=== PATIENT | female | born 1975 | race Caucasian/White ===

== ENCOUNTER → 2020-09-11 18:37 | Outpatient (CLI) | payer MEDICAID, SELFPAY ==
[2020-09-11 19:18] LABS: Basophils # 0.4 K/mm3 (0-0.2); Basophils % 2.7 % (0.1-2.0); Eosinophils # 0.3 K/mm3 (0.0-0.4); Eosinophils % 1.7 % (0.1-12.0); Hematocrit 42.8 % (37.0-47.0); Hemoglobin 14.4 g/dL (12.2-16.2); Lymphocytes # 4.3 K/mm3 (0.7-4.5); Lymphocytes % 26.9 % (10-50); Mean Corpuscular HGB Conc 33.6 g/dL (31.8-35.4); Mean Corpuscular Hemoglobin 30.7 pg (27.0-31.2); Mean Corpuscular Volume 91.4 fl (81-99); Mean Platelet Volume 12.2 fl (7.4-10.4); Monocytes # 0.6 K/mm3 (0.1-1.0); Monocytes % 3.8 % (1.7-9.3); Neutrophils # 10.4 K/mm3 (1.8-7.8); Neutrophils % 64.9 % (37.0-80.0); Platelet Count 421 K/mm3 (142-424); Red Blood Count 4.68 M/mm3 (4.20-5.40); Red Cell Distribution Width 15.3 % (11.5-17.5)
[2020-09-11 19:25] LABS: MANUAL DIFFERENTIAL MANUAL DIFFERENTIAL (MANUAL DIFF)
[2020-09-11 19:27] LABS: Hemoglobin A1C 10.8 % (4.0-6.0)
[2020-09-11 20:26] LABS: Eosinophils % 1 % (0-3); Lymphocytes % 25 % (10-50); Monocytes % 1 % (2-9); Neutrophils % 73 % (42-76); Platelet Estimate Normal; RBC Morphology Normal; Total Cells Counted 100
[2020-09-11 21:30] LABS: Alanine Aminotransferase 26 U/L (12-78); Albumin Level 4.5 g/dl (3.5-5.0); Albumin/Globulin Ratio 1.4 (1.1-1.8); Alkaline Phosphatase 102 U/L (38-126); Anion Gap 17.9 mEq/L (5-15); Aspartate Amino Transferase 30 U/L (14-36); Bilirubin,Total 0.6 mg/dl (0.2-1.3); Blood Urea Nitrogen 4 mg/dl (7-17); Calcium 9.6 mg/dl (8.4-10.2); Carbon Dioxide 27 mmol/L (22.0-30.0); Chloride 95 mmol/L (98-107); Estimated Glomerular Filt Rate 174 ml/min (>60); GFR (African American) 211 ML/MIN (>60); Globulin 3.3 g/dL (1.3-3.2); Glucose 289 mg/dl (74-100); HDL Cholesterol 42 mg/dl (40-60); Potassium 3.9 mmoL/L (3.5-5.1); Sodium 136 mmol/L (136-145); Total Protein,Serum 7.8 g/dl (6.3-8.2)
[2020-09-11 21:41] LABS: Direct LDL Cholesterol 170.19 mg/dL (100-129)
[2020-09-11 21:46] LABS: Free T4 (Free Thyroxine) 1.26 ng/dl (0.78-2.19)
[2020-09-11 21:47] LABS: 25-OH Vitamin D, Total 27.2 ng/mL (30-100)
[2020-09-11 21:48] LABS: Triglycerides 589 mg/dl (30-150)
[2020-09-11 22:01] LABS: Thyroid Stimulating Hormone 1.18 uIU/mL (0.465-4.68)
[2020-09-11 22:37] LABS: Cholesterol 338 mg/dl (140-200)
== END ==
PROVIDERS: PCP Physician Assistant; Visit Provider Physician Assistant
DX: R69 Illness, unspecified (principal); Z76.89 Persons encountering health services in other specified circumstances; E11.9 Type 2 diabetes mellitus without complications; E55.9 Vitamin D deficiency, unspecified; F32.9 Major depressive disorder, single episode, unspecified; J45.909 Unspecified asthma, uncomplicated; R05 Cough; Z72.0 Tobacco use; Z79.84 Long term (current) use of oral hypoglycemic drugs; Z85.850 Personal history of malignant neoplasm of thyroid
CPT/HCPCS: 80053; 80061; 82306; 83036; 84439; 84443; 85007; 85025

== ENCOUNTER → 2020-09-26 08:04 | Outpatient (CLI) | payer MEDICAID, SELFPAY ==
--- NOTE | 2020-09-26 08:04 | MM_ITS ---
PROCEDURE: MM DIG SCREENING MAMM BI W/CAD Digital Breast Tomosynthesis Included CLINICAL INDICATION: Breast cancer screening COMPARISON: Baseline screening exam, patient without complaints TECHNIQUE: Standard CC and MLO images and 3D Tomosynthesis was obtained. R2 CAD reviewed. FINDINGS: Moderate scattered fibroglandular densities are seen throughout both breasts. There is a mole marker on each breast. There are few scattered benign-appearing microcalcifications in each breast. There is no suspicious lesion in either breast and no suspicious microcalcifications. There are several small nodes in both axilla. IMPRESSION: Moderate breast density with no suspicious lesions seen BI-RAD Category: 2 Benign Finding(s) FOLLOW-UP: 1YR 1 Year Follow-up (A letter has been sent to the patient regarding results of the study.) Dictated by: Dr. Chaka Harman MD 09/30/2020 08:17 Dr. Chaka Harman MD in [place] 09/30/2020 08:17
--- NOTE | 2020-09-26 09:15 | PC.NURSE ---
PFT complete. Albuterol 0.083% given via hand held nebulizer per written protocol, Pt tolerated tx well.
== END ==
PROVIDERS: PCP Physician Assistant; Visit Provider Physician Assistant
DX: Z12.31 Encounter for screening mammogram for malignant neoplasm of breast (principal); R69 Illness, unspecified; R05 Cough; J45.909 Unspecified asthma, uncomplicated
CPT/HCPCS: 77063; 77067; 94726

== ENCOUNTER → 2020-11-06 14:11 | Outpatient (CLI) | payer MEDICAID, SELFPAY ==
[2020-11-06 14:35] LABS: Amphetamine/Metha Screen,Urine Negative ng/ml (<1000); Barbiturates Screen,Urine Negative ng/ml (<200)
[2020-11-06 14:36] LABS: Benzodiazepines Screen,Urine Negative ng/ml (<200)
[2020-11-06 14:37] LABS: Cannabinoid Screen,Urine Negative ng/ml (<50); Cocaine Screen,Urine Negative ng/ml (<300)
[2020-11-06 14:38] LABS: Methadone Screen,Urine Negative ng/ml (<300); Opiate Screen,Urine Negative ng/ml (<300)
[2020-11-06 14:39] LABS: Phencyclidine Screen,Urine Negative ng/ml (<25)
== END ==
PROVIDERS: Visit Provider Physician Assistant
DX: Z79.899 Other long term (current) drug therapy (principal)
CPT/HCPCS: 80305

== ENCOUNTER 2020-11-07 13:03 | Emergency (ER) | payer MEDICAID, SELFPAY ==
[2020-11-07 13:04] VITALS: BP 150/85; PULSE 104; RESP 16; TEMP 37; O2SAT 98; BMI 36.6
--- NOTE | 2020-11-07 13:19 | CT_ITS ---
PROCEDURE: CT HEAD/BRAIN WO CON CLINICAL INDICATION: headache COMPARISON: No exams were available for comparison TECHNIQUE: Axial images obtained. All CT scans at the facility use one or more dose reduction, viz: automated exposure control, ma/kV adjustment per patient size (including targeted exams where dose is matched to indication, i.e. head), or iterative reconstruction technique. FINDINGS: No midline shift, mass effect, intracranial hemorrhage, hydrocephalus, or extra-axial fluid collection is evident. The calvarium has an unremarkable appearance. No mastoid effusion. No sinus air-fluid level. IMPRESSION: No acute intracranial finding Dictated by: Sandip Karimi MD 11/07/2020 14:01 Sandip Karimi MD in [place] 11/07/2020 14:01
[2020-11-07 13:25] LABS: Microscopic, Urine URINE MICROSCOPIC (MICROSCOPIC)
[2020-11-07 13:29] LABS: Appearance,Urine CLEAR (Clear); Bilirubin,Urine Negative (Negative); Blood, Urine Negative (Negative); Color,Urine YELLOW (Yellow); Glucose,Urine (UA) 2+ (Negative); Ketones,Urine Negative (Negative); Leukocyte Esterase,Urine Negative (Negative); Nitrate,Urine Negative (Negative); Protein,Urine Negative (Negative); Specific Gravity, Urine 1.025 (1.005-1.030); Urobilinogen,Urine 0.2 EU/dl (0.2)
[2020-11-07 13:33] LABS: Urine Pregnancy, HCG Qual. Negative (Negative)
[2020-11-07 13:41] LABS: Basophils # 0.1 K/mm3 (0-0.2); Basophils % 0.7 % (0.1-2.0); Eosinophils # 0.6 K/mm3 (0.0-0.4); Eosinophils % 5.1 % (0.1-12.0); Hematocrit 37.6 % (37.0-47.0); Hemoglobin 12.4 g/dL (12.2-16.2); Lymphocytes # 3.1 K/mm3 (0.7-4.5); Lymphocytes % 25.1 % (10-50); Mean Corpuscular HGB Conc 33.1 g/dL (31.8-35.4); Mean Corpuscular Hemoglobin 30.6 pg (27.0-31.2); Mean Corpuscular Volume 92.4 fl (81-99); Monocytes # 0.4 K/mm3 (0.1-1.0); Monocytes % 3.4 % (1.7-9.3); Neutrophils # 8.2 K/mm3 (1.8-7.8); Neutrophils % 65.7 % (37.0-80.0); Platelet Count 340 K/mm3 (142-424); Red Blood Count 4.07 M/mm3 (4.20-5.40); Red Cell Distribution Width 14.2 % (11.5-17.5); White Blood Count 12.4 K/mm3 (4.8-10.8)
--- NOTE | 2020-11-07 13:44 | HMH.EDHA ---
ED Disposition Clinical Impression: Migraine Qualifiers: Migraine type: with aura Status migrainosus presence: without status migrainosus Intractability: not intractable Qualified Code(s): G43.109 - Migraine with aura, not intractable, without status migrainosus Disposition: Home, Self-Care Condition on Discharge: Good Instructions: DI for Migraine Prescriptions: Hydrocod/Acet 5/325 mg [[place] 5/325mg tablet] 1 tab PO Q6HP PRN #7 tab PRN Reason: Moderate Pain Transmission Status: Received by [facility] Promethazine HCl [Phenergan 25mg tablet] 25 mg PO Q8 PRN #10 tab PRN Reason: Nausea Transmission Status: Pending to [facility] Referrals: Sabra Gamino PA [Primary Care Provider] - - Critical Care Critical Care Time: No Attestation: On 11/07/20, the high probability of a clinically significant, sudden or life threatening deterioration of the following system(s) required my full and direct attention, intervention and personal management. The time I documented below is in addition to time spent performing reported procedures but includes the following listed in this critical care notation. Medical Decision Making - Medical Records Medical records reviewed: Yes: I reviewed the patient's medical records. - Ramirez Inquiry Pt receiving controlled substance: No Vital Signs: 11/07/20 13:04 11/07/20 14:49 11/07/20 15:15 Temperature 98.6 F Temperature Source Oral Pulse Rate [Radial] 104 H 98 H 97 H Respiratory Rate 16 Blood Pressure [Right Arm] 150/85 H 136/90 120/72 Blood Pressure Mean [Right Arm] 106 105 88 Blood Pressure Source [Right Arm] Automatic Cuff Automatic Cuff Blood Pressure Position [Right Arm] Sitting Sitting Sitting 02 Sat by Pulse Oximetry 98 98 98 Oxygen Delivery Method Room Air Room Air Room Air - Lab Data Lab Results 11/07/20 13:15: Urine Color Yellow, Urine Appearance Clear, Urine pH 6.0, Ur Specific [place] 1.025, Urine Protein Negative, Urine Glucose (UA) 2+, Urine Ketones Negative, Urine Blood Negative, Urine Nitrate Negative, Urine Bilirubin Negative, Urine Urobilinogen 0.2, Ur Leukocyte Esterase Negative, Urine RBC None, Urine WBC Occasional, Ur Squamous Epith Cells 3-5, Urine Bacteria Trace 11/07/20 13:15: Urine HCG, Qual Negative 11/07/20 13:30: WBC 12.4 H, RBC 4.07 L, Hgb 12.4, Hct 37.6, MCV 92.4, MCH 30.6, MCHC 33.1, RDW 14.2, Plt Count 340, MPV 9.0, Neut % (Auto) 65.7, Lymph % (Auto) 25.1, [place] % (Auto) 3.4, Eos % (Auto) 5.1, Baso % (Auto) 0.7, Neut # (Auto) 8.2 H, Lymph # (Auto) 3.1, [place] # (Auto) 0.4, Eos # (Auto) 0.6 H, Baso # (Auto) 0.1 11/07/20 13:30: Sodium 140, Potassium 4.0, Chloride 104, Carbon Dioxide 28, Anion Gap 12.0, BUN 10, Creatinine 0.40 L, Estimated Creat Clear 286, Estimated GFR 174, Est GFR ( Amer) 211, Glucose 253 H, Calcium 9.6, Total Bilirubin 0.4, AST 24, ALT 23, Alkaline Phosphatase 75, Total Protein 7.1, Albumin 4.2, Globulin 2.9, Albumin/Globulin Ratio 1.4 Result diagrams: 11/07/20 13:30 11/07/20 13:30 Orders (Tests/Meds): ED MEDICATIONS Discontinued Medications Generic Name Dose Route Start Last Admin Trade Name Freq PRN Reason Stop Dose Admin Diphenhydramine HCl 25 mg 11/07/20 13:33 11/07/20 13:37 Diphenhydramine 50mg/Ml Vial IV 11/07/20 13:34 25 mg ONCE ONE Administration Sodium Chloride 1,000 mls @ 999 mls/hr 11/07/20 13:30 11/07/20 13:37 Sod Chlor 0.9% 1000ml Bag IV 11/07/20 14:30 999 mls/hr .Q1H1M QUINTON Administration Ketorolac Tromethamine 30 mg 11/07/20 13:32 11/07/20 13:37 Ketorolac 30mg/Ml Vial IV 11/07/20 13:33 30 mg ONCE ONE Administration Morphine Sulfate 4 mg 11/07/20 13:57 11/07/20 14:02 Morphine 4mg/Ml Syringe IV 11/07/20 13:58 4 mg ONCE ONE Administration Ondansetron HCl 4 mg 11/07/20 13:33 11/07/20 13:37 Ondansetron 4mg/2ml Vial IV 11/07/20 13:34 4 mg ONCE ONE Administration - CT Data CT Scan: Head Time Received: 1
[2020-11-07 13:45] LABS: Chloride 104 mmol/L (98-107); Sodium 140 mmol/L (136-145)
[2020-11-07 13:47] LABS: Blood Urea Nitrogen 10 mg/dl (7-17)
[2020-11-07 13:48] LABS: Alanine Aminotransferase 23 U/L (12-78); Albumin Level 4.2 g/dl (3.5-5.0); Albumin/Globulin Ratio 1.4 (1.1-1.8); Alkaline Phosphatase 75 U/L (38-126); Aspartate Amino Transferase 24 U/L (14-36); Bilirubin,Total 0.4 mg/dl (0.2-1.3); Calcium 9.6 mg/dl (8.4-10.2); Carbon Dioxide 28 mmol/L (22.0-30.0); Creatinine Clearance Estimated 286 mL/min (50-200); Estimated Glomerular Filt Rate 174 ml/min (>60); GFR (African American) 211 ML/MIN (>60); Globulin 2.9 g/dL (1.3-3.2); Glucose 253 mg/dl (74-100); Total Protein,Serum 7.1 g/dl (6.3-8.2)
[2020-11-07 14:07] LABS: Bacteria,Urine Trace /lpf; WBC,Urine Occasional #/hpf (0-3)
[2020-11-07 14:49] VITALS: BP 136/90; PULSE 98; O2SAT 98
[2020-11-07 15:15] VITALS: BP 120/72; PULSE 97; O2SAT 98
[2020-11-07 15:50] VITALS: BP 150/92; PULSE 78; RESP 16; TEMP 36.6; O2SAT 98
== END 2020-11-07 15:52 | disposition home or self-care (01) ==
PROVIDERS: Emergency Provider Emergency Medicine; PCP Physician Assistant
DX: G43.109 Migraine with aura, not intractable, without status migrainosus (principal); E11.65 Type 2 diabetes mellitus with hyperglycemia; E78.5 Hyperlipidemia, unspecified; F33.1 Major depressive disorder, recurrent, moderate; F17.210 Nicotine dependence, cigarettes, uncomplicated; Z79.899 Other long term (current) drug therapy
CPT/HCPCS: 70450; 80053; 81001; 81025; 85025; 96365; 96375; 99283; J2405

== ENCOUNTER → 2021-04-10 13:45 | Outpatient (CLI) | payer BC, MEDICAID, SELFPAY ==
[2021-04-10 14:01] LABS: Basophils # 0.1 K/mm3 (0-0.2); Basophils % 0.7 % (0.1-2.0); Eosinophils # 0.6 K/mm3 (0.0-0.4); Eosinophils % 5.6 % (0.1-12.0); Hematocrit 38.2 % (37.0-47.0); Hemoglobin 12.9 g/dL (12.2-16.2); Lymphocytes # 3.5 K/mm3 (0.7-4.5); Lymphocytes % 31.5 % (10-50); Mean Corpuscular HGB Conc 33.7 g/dL (31.8-35.4); Mean Corpuscular Hemoglobin 30.2 pg (27.0-31.2); Mean Corpuscular Volume 89.4 fl (81-99); Mean Platelet Volume 9.7 fl (7.4-10.4); Monocytes # 0.6 K/mm3 (0.1-1.0); Monocytes % 5.3 % (1.7-9.3); Neutrophils # 6.3 K/mm3 (1.8-7.8); Neutrophils % 56.9 % (37.0-80.0); Platelet Count 339 K/mm3 (142-424); Red Blood Count 4.27 M/mm3 (4.20-5.40); Red Cell Distribution Width 13.9 % (11.5-17.5); White Blood Count 11.1 K/mm3 (4.8-10.8)
[2021-04-10 14:04] LABS: Creatinine,Urine Random 159 mg/dL (Not Estab.)
[2021-04-10 14:05] LABS: Chloride 105 mmol/L (98-107)
[2021-04-10 14:06] LABS: Sodium 141 mmol/L (136-145)
[2021-04-10 14:08] LABS: Alanine Aminotransferase 14 U/L (12-78); Alkaline Phosphatase 72 U/L (38-126); Aspartate Amino Transferase 19 U/L (14-36); Bilirubin,Total 0.4 mg/dl (0.2-1.3); Blood Urea Nitrogen 4 mg/dl (7-17); Carbon Dioxide 23 mmol/L (22.0-30.0); Estimated Glomerular Filt Rate 174 ml/min (>60); GFR (African American) 211 ML/MIN (>60); Triglycerides 135 mg/dl (30-150); VLDL Cholesterol 27 mg/dL (0-40)
[2021-04-10 14:09] LABS: Albumin Level 3.7 g/dl (3.5-5.0); Albumin/Globulin Ratio 1.5 (1.1-1.8); Calcium 8.5 mg/dl (8.4-10.2); Chol/HDL Ratio 4.6 (1-3.5); Cholesterol 119 mg/dl (140-200); Globulin 2.5 g/dL (1.3-3.2); Glucose 114 mg/dl (74-100); HDL Cholesterol 26 mg/dl (40-60); Total Protein,Serum 6.2 g/dl (6.3-8.2)
[2021-04-10 14:20] LABS: Direct LDL Cholesterol 69.14 mg/dL (100-129)
[2021-04-10 14:26] LABS: T4 (Thyroxine) 16.2 ug/dl (5.53-11.0)
[2021-04-10 14:40] LABS: Thyroid Stimulating Hormone < 0.02 uIU/mL (0.465-4.68)
[2021-04-10 14:58] LABS: Microalbumin/Creatinine Ratio 288.7
[2021-04-10 15:05] LABS: 25-OH Vitamin D, Total 49.1 ng/mL (30-100)
== END ==
PROVIDERS: Visit Provider Physician Assistant
DX: E11.9 Type 2 diabetes mellitus without complications (principal); E55.9 Vitamin D deficiency, unspecified; R82.90 Unspecified abnormal findings in urine; Z85.850 Personal history of malignant neoplasm of thyroid; Z79.84 Long term (current) use of oral hypoglycemic drugs
CPT/HCPCS: 80053; 80061; 82043; 82306; 82570; 83036; 84436; 84443; 85025; 87086; 87088; 87186

== ENCOUNTER 2021-05-18 21:21 | Emergency (ER) | payer BC, MEDICAID, SELFPAY ==
[2021-05-18 21:22] VITALS: BP 164/90; PULSE 108; RESP 24; TEMP 37.2; O2SAT 99; BMI 33.3
[2021-05-18 21:49] LABS: Coronavirus 19, PCR Not Detected (NotDetected); Influenza A, PCR Not Detected (NotDetected); Influenza B, PCR Not Detected (NotDetected)
[2021-05-18 22:00] VITALS: BP 134/90; PULSE 98; RESP 24; O2SAT 99
--- NOTE | 2021-05-18 22:20 | ECG_ITS ---
APPROVED REPORT Exam: Resting ECG HR:100 bpm ECG Measurements Heart Rate 100 AXES DC 130 P 55 QRSd 88 QRS 50 QT 354 T 37 QTc 456 Conclusion Normal sinus rhythm Normal ECG Electronically signed by : Pan Rocha MD 05/19/2021 18:08:11
--- NOTE | 2021-05-18 22:20 | XR_ITS ---
PROCEDURE INFORMATION: Exam: XR Chest Exam date and time: 05/18/2021 10:20 PM Age: 45 years old Clinical indication: Cough and shortness of breath; Additional info: Cough SOB TECHNIQUE: Imaging protocol: XR of the chest. Views: 2 views. COMPARISON: No relevant prior studies available. FINDINGS: Lungs: Unremarkable. No consolidation. Pleural spaces: Unremarkable. No pleural effusion. No pneumothorax. Heart/Mediastinum: Unremarkable. No cardiomegaly. Bones/joints: Unremarkable. IMPRESSION: No acute findings.
--- NOTE | 2021-05-18 22:20 | PC.NURSE ---
Pt placed in COVID isolation
--- NOTE | 2021-05-18 22:21 | CT_ITS ---
PROCEDURE INFORMATION: Exam: CTA Chest With Contrast Exam date and time: 05/18/2021 10:21 PM Age: 45 years old Clinical indication: Cough and shortness of breath; Additional info: Cough SOA TECHNIQUE: Imaging protocol: Computed tomographic angiography of the chest with contrast. 3D rendering (Not supervised by radiologist): MIP and/or 3D reconstructed images were created by the technologist. Radiation optimization: All CT scans at this facility use at least one of these dose optimization techniques: automated exposure control; mA and/or kV adjustment per patient size (includes targeted exams where dose is matched to clinical indication); or iterative reconstruction. Contrast material: ISOVUE 370; Contrast volume: 70 ml; Contrast route: INTRAVENOUS (IV); COMPARISON: CR XR CHEST 2V 05/18/2021 11:27 PM FINDINGS: Pulmonary arteries: The pulmonary trunk, main, and branch pulmonary arteries contain no filling defects. Aorta: Unremarkable. No aortic aneurysm. No aortic dissection. Lungs: Unremarkable. No consolidation. No masses. Pleural spaces: Unremarkable. No pneumothorax. No pleural effusion. Heart: No cardiomegaly. No pericardial effusion. Heart RV/LV ratio: Within normal limits. Coronary arteries: There is no evidence of significant coronary artery calcifications. Mediastinal space: No evidence of mediastinal or hilar mass. Lymph nodes: Unremarkable. No enlarged lymph nodes. Bones/joints: Unremarkable. No acute fracture. Soft tissues: Hepatosplenomegaly is identified. There are calcified gallstones identified within the gallbladder. No evidence of intrahepatic or extrahepatic biliary dilatation. IMPRESSION: 1. No evidence of main or branch pulmonary embolism. 2. No evidence of acute infiltrate within either lung field. 3. Hepatosplenomegaly is identified. Gallstones are noted within the gallbladder.
[2021-05-18 22:30] VITALS: BP 140/84; PULSE 99; RESP 24; O2SAT 98
--- NOTE | 2021-05-18 22:31 | HMH.EDSOB ---
ED Disposition Clinical Impression: Bronchitis Disposition: Home, Self-Care Condition on Discharge: Good Instructions: DI for Acute Bronchitis Additional Instructions: fluids and use meds and call pcp for follow up Prescriptions: levoFLOXacin [Levaquin 500mg tab] 500 mg PO DAILY #7 tab Transmission Status: Pending to [facility] predniSONE [Prednisone 20mg Tab] 20 mg PO BID #10 tab Transmission Status: Pending to [facility] Referrals: Sabra Gamino PA [Primary Care Provider] - - Critical Care Critical Care Time: No Attestation: On 05/18/21, the high probability of a clinically significant, sudden or life threatening deterioration of the following system(s) required my full and direct attention, intervention and personal management. The time I documented below is in addition to time spent performing reported procedures but includes the following listed in this critical care notation. Medical Decision Making - Medical Records Medical records reviewed: Yes: I reviewed the patient's medical records. - Ramirez Inquiry Pt receiving controlled substance: No Vital Signs: 05/18/21 21:22 05/18/21 22:00 05/18/21 22:30 Temperature 98.9 F Temperature Source Oral Pulse Rate 98 H 99 H Pulse Rate [Right Radial] 108 H Respiratory Rate 24 24 24 Blood Pressure 134/90 140/84 Blood Pressure [Right Arm] 164/90 H Blood Pressure Mean [Right Arm] 114 Blood Pressure Source Automatic Cuff Automatic Cuff Blood Pressure Source [Right Arm] Automatic Cuff Blood Pressure Position Sitting Sitting Blood Pressure Position [Right Arm] Sitting 02 Sat by Pulse Oximetry 99 99 98 Oxygen Delivery Method Room Air Room Air Room Air 05/18/21 23:00 Temperature Temperature Source Pulse Rate 98 H Pulse Rate [Right Radial] Respiratory Rate Blood Pressure 127/79 Blood Pressure [Right Arm] Blood Pressure Mean [Right Arm] Blood Pressure Source Automatic Cuff Blood Pressure Source [Right Arm] Blood Pressure Position Sitting Blood Pressure Position [Right Arm] 02 Sat by Pulse Oximetry 99 Oxygen Delivery Method Room Air - Lab Data Lab results reviewed: Yes: I reviewed the patient's lab results. Lab Results 05/18/21 21:40: SARS-CoV-2 (PCR) Not detected, Influenza A Untype (PCR) Not detected, Influenza Type B (PCR) Not detected 05/18/21 21:56: WBC 13.0 H, RBC 4.47, Hgb 13.7, Hct 41.3, MCV 92.4, MCH 30.6, MCHC 33.1, RDW 12.9, Plt Count 340, MPV 9.0, Neut % (Auto) 61.5, Lymph % (Auto) 28.3, [place] % (Auto) 4.4, Eos % (Auto) 5.2, Baso % (Auto) 0.6, Neut # (Auto) 8.0 H, Lymph # (Auto) 3.7, [place] # (Auto) 0.6, Eos # (Auto) 0.7 H, Baso # (Auto) 0.1 05/18/21 21:56: Sodium 139, Potassium 3.8, Chloride 101, Carbon Dioxide 25, Anion Gap 16.8 H, BUN 6 L, Creatinine 0.40 L, Estimated Creat Clear 260, Estimated GFR 174, Est GFR ( Amer) 211, Glucose 263 H, Calcium 8.8, Total Bilirubin 0.2, Direct Bilirubin 0.2, Conjugated Bilirubin 0.0, Indirect Bilirubin 0.0, Unconjugated Bilirubin 0.0, AST 25, ALT 24, Alkaline Phosphatase 100, Troponin I < 0.01, Total Protein 6.6, Albumin 3.9 05/18/21 21:56: ESR 22 H 05/18/21 21:56: Ferritin 14.5, C-Reactive Protein 11.7 H, Procalcitonin 0.036 05/18/21 21:56: SARS-CoV-2 IgG Ab (Rapid) Positive A, SARS-CoV-2 IgM Ab (Rapid) Negative Result diagrams: 05/18/21 21:56 05/18/21 21:56 Orders (Tests/Meds): ED MEDICATIONS Generic Name Dose Route Start Last Admin Trade Name Freq PRN Reason Stop Dose Admin Sodium Chloride 1,000 mls @ 999 mls/hr 05/18/21 22:30 05/18/21 22:39 Sod Chlor 0.9% 1000ml Bag IV 05/18/21 23:30 999 mls/hr .Q1H1M QUINTON Administration Discontinued Medications Generic Name Dose Route Start Last Admin Trade Name Freq PRN Reason Stop Dose Admin Dexamethasone Sodium Phosphate 10 mg 05/18/21 22:27 05/18/21 22:38 Dexamethasone 4mg/Ml 5ml Mdv IV 05/18/21 22:28 10 mg ONCE ONE Administration Iopamidol 70 ml
[2021-05-18 22:32] LABS: Basophils # 0.1 K/mm3 (0-0.2); Basophils % 0.6 % (0.1-2.0); Chloride 101 mmol/L (98-107); Eosinophils # 0.7 K/mm3 (0.0-0.4); Eosinophils % 5.2 % (0.1-12.0); Hematocrit 41.3 % (37.0-47.0); Hemoglobin 13.7 g/dL (12.2-16.2); Lymphocytes # 3.7 K/mm3 (0.7-4.5); Lymphocytes % 28.3 % (10-50); Mean Corpuscular HGB Conc 33.1 g/dL (31.8-35.4); Mean Corpuscular Hemoglobin 30.6 pg (27.0-31.2); Mean Corpuscular Volume 92.4 fl (81-99); Monocytes # 0.6 K/mm3 (0.1-1.0); Monocytes % 4.4 % (1.7-9.3); Neutrophils % 61.5 % (37.0-80.0); Platelet Count 340 K/mm3 (142-424); Potassium 3.8 mmoL/L (3.5-5.1); Red Blood Count 4.47 M/mm3 (4.20-5.40); Red Cell Distribution Width 12.9 % (11.5-17.5); Sodium 139 mmol/L (136-145)
[2021-05-18 22:34] LABS: Alanine Aminotransferase 24 U/L (12-78); Blood Urea Nitrogen 6 mg/dl (7-17); Creatinine Clearance Estimated 260 mL/min (50-200); Estimated Glomerular Filt Rate 174 ml/min (>60); GFR (African American) 211 ML/MIN (>60)
[2021-05-18 22:35] LABS: Albumin Level 3.9 g/dl (3.5-5.0); Alkaline Phosphatase 100 U/L (38-126); Anion Gap 16.8 mEq/L (5-15); Aspartate Amino Transferase 25 U/L (14-36); Bilirubin,Direct 0.2 mg/dl (0.0-0.4); Bilirubin,Total 0.2 mg/dl (0.2-1.3); Calcium 8.8 mg/dl (8.4-10.2); Carbon Dioxide 25 mmol/L (22.0-30.0); Glucose 263 mg/dl (74-100); Total Protein,Serum 6.6 g/dl (6.3-8.2)
[2021-05-18 22:50] LABS: Troponin I < 0.01 ng/ml (0.00-0.034)
[2021-05-18 22:53] LABS: C-Reactive Protein 11.7 mg/L (0-4)
[2021-05-18 23:00] VITALS: BP 127/79; PULSE 98; O2SAT 99
[2021-05-18 23:00] LABS: Erythrocyte Sedimentation Rate 22 mm/hr (0-20)
[2021-05-18 23:08] LABS: Procalcitonin 0.036 ng/mL (0.0-2.0)
[2021-05-18 23:29] LABS: Ferritin 14.5 ng/ml (6.24-137)
[2021-05-18 23:55] LABS: Coronavirus 19 IgG Antibody Positive (Negative); Coronavirus 19 IgM Antibody Negative (Negative)
[2021-05-19 00:44] VITALS: BP 139/88; PULSE 94; RESP 22; TEMP 36.9; O2SAT 99
== END 2021-05-19 00:58 | disposition home or self-care (01) ==
PROVIDERS: Emergency Provider Emergency Medicine; PCP Physician Assistant
DX: J20.9 Acute bronchitis, unspecified (principal); Z86.19 Personal history of other infectious and parasitic diseases; E11.9 Type 2 diabetes mellitus without complications; F17.210 Nicotine dependence, cigarettes, uncomplicated
CPT/HCPCS: 71046; 71275; 80048; 80076; 82728; 84145; 84484; 85025; 85651; 86140; 86328; 93005; 96365; 96375; 99283; C9803; J2405; Q9967; U0003; U0005

== ENCOUNTER → 2021-06-02 18:15 | Outpatient (CLI) | payer BC, MEDICAID, SELFPAY | PROVIDERS: Visit Provider Family Medicine | DX: Z20.822 Contact with and (suspected) exposure to COVID-19 (principal); U07.1 COVID-19 | CPT/HCPCS: C9803; U0003; U0005 ==

== ENCOUNTER 2021-08-07 00:54 | Emergency (ER) | payer BC, MEDICAID, SELFPAY ==
[2021-08-07 00:56] VITALS: BP 146/84; PULSE 115; RESP 16; TEMP 36.8; O2SAT 96; BMI 33.0
--- NOTE | 2021-08-07 01:14 | CT_ITS ---
PROCEDURE INFORMATION: Exam: CT Abdomen And Pelvis Without Contrast Exam date and time: 08/07/2021 1:14 AM Age: 46 years old Clinical indication: Abdominal pain; Prior surgery; Surgery type: Csection; Patient HX: Bilat kidney pain, no HX of stones TECHNIQUE: Imaging protocol: Computed tomography of the abdomen and pelvis without contrast. Radiation optimization: All CT scans at this facility use at least one of these dose optimization techniques: automated exposure control; mA and/or kV adjustment per patient size (includes targeted exams where dose is matched to clinical indication); or iterative reconstruction. COMPARISON: CT ANGIO CHEST PE PROTOCOL 05/18/2021 11:43 PM FINDINGS: Heart: Coronary artery disease. Liver: Normal. No mass. Gallbladder and bile ducts: Cholelithiasis. Pancreas: Normal. No ductal dilation. Spleen: Normal. No splenomegaly. Adrenal glands: Normal. No mass. Kidneys and ureters: Normal. No hydronephrosis. Stomach and bowel: Mild small bowel feces. Appendix: Unremarkable appendix. Intraperitoneal space: Unremarkable. No free air. No significant fluid collection. Vasculature: Unremarkable. No abdominal aortic aneurysm. Lymph nodes: Unremarkable. No enlarged lymph nodes. Urinary bladder: Urinary bladder wall thickening is nonspecific. Reproductive: Unremarkable as visualized. Bones/joints: Unremarkable. No acute fracture. Soft tissues: Tiny fat containing umbilical hernia. IMPRESSION: 1. Urinary bladder wall thickening is nonspecific. Please exclude infection. 2. Cholelithiasis.
[2021-08-07 01:21] LABS: Microscopic, Urine URINE MICROSCOPIC (MICROSCOPIC)
[2021-08-07 01:25] LABS: Basophils # 0.1 K/mm3 (0-0.2); Basophils % 0.9 % (0.1-2.0); Eosinophils # 0.4 K/mm3 (0.0-0.4); Eosinophils % 2.4 % (0.1-12.0); Hematocrit 39.5 % (37.0-47.0); Hemoglobin 13.5 g/dL (12.2-16.2); Lymphocytes # 3.3 K/mm3 (0.7-4.5); Lymphocytes % 21.7 % (10-50); Mean Corpuscular HGB Conc 34.3 g/dL (31.8-35.4); Mean Corpuscular Volume 90.4 fl (81-99); Mean Platelet Volume 9.2 fl (7.4-10.4); Monocytes # 0.7 K/mm3 (0.1-1.0); Monocytes % 4.7 % (1.7-9.3); Neutrophils # 10.8 K/mm3 (1.8-7.8); Neutrophils % 70.4 % (37.0-80.0); Platelet Count 392 K/mm3 (142-424); Red Blood Count 4.37 M/mm3 (4.20-5.40); Red Cell Distribution Width 13.1 % (11.5-17.5); White Blood Count 15.3 K/mm3 (4.8-10.8)
[2021-08-07 01:25] LABS: Bilirubin,Urine Negative (Negative); Blood, Urine 2+ (Negative); Color,Urine YELLOW (Yellow); Glucose,Urine (UA) 3+ (Negative); Ketones,Urine Negative (Negative); Leukocyte Esterase,Urine 2+ (Negative); Nitrate,Urine POSITIVE (Negative); Protein,Urine 1+ (Negative); Specific Gravity, Urine 1.015 (1.005-1.030); Urobilinogen,Urine 0.2 EU/dl (0.2)
[2021-08-07 01:28] LABS: Urine Pregnancy, HCG Qual. Negative (Negative)
[2021-08-07 01:30] LABS: Appearance,Urine Cloudy (Clear)
[2021-08-07 01:31] LABS: MANUAL DIFFERENTIAL MANUAL DIFFERENTIAL (MANUAL DIFF)
[2021-08-07 01:33] LABS: Alanine Aminotransferase 16 U/L (12-78); Albumin Level 4.4 g/dl (3.5-5.0); Albumin/Globulin Ratio 1.5 (1.1-1.8); Alkaline Phosphatase 69 U/L (38-126); Amylase 52 U/L (30-110); Anion Gap 12.7 mEq/L (5-15); Aspartate Amino Transferase 22 U/L (14-36); Bilirubin,Total 0.3 mg/dl (0.2-1.3); Blood Urea Nitrogen 8 mg/dl (7-17); Calcium 9.9 mg/dl (8.4-10.2); Carbon Dioxide 28 mmol/L (22.0-30.0); Chloride 99 mmol/L (98-107); Creatinine Clearance Estimated 260 mL/min (50-200); Estimated Glomerular Filt Rate 173 ml/min (>60); GFR (African American) 210 ML/MIN (>60); Globulin 2.9 g/dL (1.3-3.2); Glucose 255 mg/dl (74-100); Lipase 105 U/L (23-300); Potassium 3.7 mmoL/L (3.5-5.1); Sodium 136 mmol/L (136-145); Total Protein,Serum 7.3 g/dl (6.3-8.2)
--- NOTE | 2021-08-07 01:40 | HMH.EDUROGF ---
ED Disposition Clinical Impression: Urinary tract infection Qualifiers: Urinary tract infection type: site unspecified Hematuria presence: without hematuria Qualified Code(s): N39.0 - Urinary tract infection, site not specified Cholelithiasis Qualifiers: Cholelithiasis location: gallbladder Cholecystitis presence: without cholecystitis Biliary obstruction: without biliary obstruction Qualified Code(s): K80.20 - Calculus of gallbladder without cholecystitis without obstruction Diabetes mellitus Qualifiers: Diabetes mellitus type: type 2 Diabetes mellitus correction insulin use: unspecified buttermaker helper insulin use status Diabetes mellitus complication status: with other specified complication Qualified Code(s): E11.69 - Type 2 diabetes mellitus with other specified complication Disposition: Home, Self-Care Condition on Discharge: Good Instructions: DI for Urinary Tract Infection (UTI) Additional Instructions: use meds and see pcp for follow up Prescriptions: levoFLOXacin [Levaquin 500mg tab] 500 mg PO DAILY #7 tab Transmission Status: Pending to [facility] Referrals: Sabra Gamino PA [Primary Care Provider] - - Critical Care Critical Care Time: No Attestation: On 08/07/21, the high probability of a clinically significant, sudden or life threatening deterioration of the following system(s) required my full and direct attention, intervention and personal management. The time I documented below is in addition to time spent performing reported procedures but includes the following listed in this critical care notation. Medical Decision Making - Medical Records Medical records reviewed: Yes: I reviewed the patient's medical records. - Ramirez Inquiry Pt receiving controlled substance: No Vital Signs: 08/07/21 00:56 Temperature 98.2 F Temperature Source Oral Pulse Rate [Left] 115 H Respiratory Rate 16 Blood Pressure [Right Arm] 146/84 H Blood Pressure Mean [Right Arm] 104 02 Sat by Pulse Oximetry 96 Oxygen Delivery Method Room Air - Lab Data Lab results reviewed: Yes: I reviewed the patient's lab results. Lab Results 08/07/21 01:03: Urine Color Yellow, Urine Appearance Cloudy, Urine pH 6.0, Ur Specific [place] 1.015, Urine Protein 1+, Urine Glucose (UA) 3+, Urine Ketones Negative, Urine Blood 2+, Urine Nitrate Positive, Urine Bilirubin Negative, Urine Urobilinogen 0.2, Ur Leukocyte Esterase 2+ A, Urine RBC 3-5, Urine WBC 5-10, Ur Squamous Epith Cells 3-5, Urine Bacteria 2+, Urine Mucus 1+ 08/07/21 01:03: Urine HCG, Qual Negative 08/07/21 01:10: WBC 15.3 H, RBC 4.37, Hgb 13.5, Hct 39.5, MCV 90.4, MCH 31.0, MCHC 34.3, RDW 13.1, Plt Count 392, MPV 9.2, Neut % (Auto) 70.4, Lymph % (Auto) 21.7, [place] % (Auto) 4.7, Eos % (Auto) 2.4, Baso % (Auto) 0.9, Neut # (Auto) 10.8 H, Lymph # (Auto) 3.3, [place] # (Auto) 0.7, Eos # (Auto) 0.4, Baso # (Auto) 0.1, Total Counted 100, Neutrophils % (Manual) 63, Lymphocytes % (Manual) 32, Monocytes % (Manual) 2, Eosinophils % (Manual) 3, Platelet Estimate Normal, RBC Morphology Normal 08/07/21 01:10: Sodium 136, Potassium 3.7, Chloride 99, Carbon Dioxide 28, Anion Gap 12.7, BUN 8, Creatinine 0.40 L, Estimated Creat Clear 260, Estimated GFR 173, Est GFR ( Amer) 210, Glucose 255 H, Calcium 9.9, Total Bilirubin 0.3, AST 22, ALT 16, Alkaline Phosphatase 69, Total Protein 7.3, Albumin 4.4, Globulin 2.9, Albumin/Globulin Ratio 1.5, Amylase 52, Lipase 105 08/07/21 01:10: Hemoglobin A1c 8.1 H Result diagrams: 08/07/21 01:10 08/07/21 01:10 Orders (Tests/Meds): ED MEDICATIONS Generic Name Dose Route Start Last Admin Trade Name Freq PRN Reason Stop Dose Admin Sodium Chloride 1,000 mls @ 999 mls/hr 08/07/21 01:30 08/07/21 01:24 Sod Chlor 0.9% 1000ml Bag IV 08/07/21 02:30 999 mls/hr .Q1H1M QUINTON Administration Ceftriaxone Sodium 1 gm/ 50 mls @ 100 mls/hr 08/07/21 02:30 08/07/21 02:55 Sodium Chloride IV 08/21/21 02:29 100 mls/hr Q24H QUINTON Adminis
[2021-08-07 01:48] LABS: Bacteria,Urine 2+ /lpf; Mucus,Urine 1+ /lpf
[2021-08-07 02:39] LABS: Eosinophils % 3 % (0-3); Lymphocytes % 32 % (10-50); Monocytes % 2 % (2-9); Neutrophils % 63 % (42-76); Platelet Estimate Normal; RBC Morphology Normal; Total Cells Counted 100
[2021-08-07 02:57] LABS: Hemoglobin A1C 8.1 % (4.0-6.0)
[2021-08-07 03:33] VITALS: BP 115/72; PULSE 98; RESP 16; TEMP 36.7; O2SAT 99
== END 2021-08-07 03:37 | disposition home or self-care (01) ==
PROVIDERS: Emergency Provider Emergency Medicine; PCP Physician Assistant
DX: N30.00 Acute cystitis without hematuria (principal); K80.20 Calculus of gallbladder without cholecystitis without obstruction; E11.65 Type 2 diabetes mellitus with hyperglycemia; J45.909 Unspecified asthma, uncomplicated; F17.210 Nicotine dependence, cigarettes, uncomplicated; Z79.899 Other long term (current) drug therapy
CPT/HCPCS: 74176; 80053; 81001; 81025; 82150; 83036; 83690; 85007; 85025; 87086; 87088; 87186; 96365; 96375; 99283; J2405

== ENCOUNTER → 2021-08-08 19:22 | Outpatient (CLI) | payer BC, MEDICAID, SELFPAY | PROVIDERS: PCP Physician Assistant; Visit Provider Nurse Practitioner Family | DX: U07.1 COVID-19 (principal) | CPT/HCPCS: C9803; U0003; U0005 ==

== ENCOUNTER 2021-09-13 16:40 | Emergency (ER) | payer MEDICAID, SELFPAY ==
[2021-09-13 18:30] VITALS: BP 128/86; PULSE 96; RESP 21; TEMP 37.1; O2SAT 100; BMI 33.7
[2021-09-13 18:43] LABS: UTC Influenza A Antigen Negative (Negative); UTC Influenza B Antigen Negative (Negative)
--- NOTE | 2021-09-13 18:48 | HMH.EDUTC ---
[facility] [place] Disposition Clinical Impression: Bronchitis Sinusitis Qualifiers: Sinusitis location: unspecified location Chronicity: unspecified Qualified Code(s): J32.9 - Chronic sinusitis, unspecified Disposition: Home, Self-Care Condition on Discharge: Good Instructions: Sinusitis, DI for Sinusitis, DI for COVID-19 (Suspected or Confirmed ), Preventing the Spread of Coronavirus Discharge Instructions Additional Instructions: *Monitor Temp, Over the counter Motrin or Tylenol as directed/as needed Tylenol every 4 hours and Motrin every 6 hours (as long as your family doctor has told you that you can take it) for fever or pain. and straight to ER if unable to lower temp less than 101.0 after medication given *Warm salt water gargles may help to soothe the throat *Throat Lozenges *Warm fluids like tea with honey may help to soothe the throat *Sleep elevated *Humidifier/Vaporizer Follow up IMMEDIATELY for new or worsening symptoms or no Noticeable improvement over the next 48-72 hours. 911 for difficulty breathing or swallowing You were tested for today for COVID19 your test result should be back in the next 24-48 hours, you may check your results on the [facility] My Health Portal if you have trouble logging on you may call You was given a handout with instructions for Self Quarantine and Self isolation for while you wait on test results and what to do if they are positive If you are positive the Health Dept will be contacting you also Make sure to take your Vitamins Vit. C Vit D and Zinc if you can take them Prescriptions: Benzonatate [Benzonatate 100mg cap] 100 mg PO Q8HP PRN #15 cap PRN Reason: Cough Transmission Status: Pending to [facility] Fluconazole [Diflucan 150mg tab] 150 mg PO ONCE #1 tab Transmission Status: Pending to [facility] methylPREDNISolone [Medrol 4mg tab] 4 mg PO DIRECTED #21 tab Transmission Status: Pending to [facility] Azithromycin [Z-Mitul 250mg Tab] 250 mg PO DIRECTED #6 tab Transmission Status: Pending to [facility] Referrals: Sabra Gamino PA [Primary Care Provider] - As needed Time of Disposition: 19:04 Medical Decision Making - Ramirez Inquiry Pt receiving controlled substance: No Ramirez was queried for this patient: No Vital Signs: 09/13/21 18:30 Temperature 98.7 F Temperature Source Oral Pulse Rate [Right Brachial] 96 H Respiratory Rate 21 Blood Pressure [Right Arm] 128/86 Blood Pressure Mean [Right Arm] 100 Blood Pressure Source [Right Arm] Automatic Cuff Blood Pressure Position [Right Arm] Sitting 02 Sat by Pulse Oximetry 100 Oxygen Delivery Method Room Air - Lab Data Lab Results 09/13/21 18:34: Influenza Type A Ag Negative, Influenza Type B Ag Negative Orders (Tests/Meds): ORDERS Category Date Time Status Covid-19 Nasal PCR ([facility]) Routine Lab 09/13/21 18:24 Received Medical Decision Narrative: Patient states that she has taken azithromycin and medrol pack without complications [facility] [place] HPI - General Stated complaint: covid test sore throat COOK V/D weak SOA Time Seen by Provider: 09/13/21 18:48 Mode of Arrival: Ambulatory Source of Information: Patient Limitations: No Limitations Description of Symptoms (Recalled from Triage Doc. by RN): PATIENT C/O SOA, HEADACHE, AND DIARRHEA X 3 DAYS. REPORTS RECENT EXPOSURE TO COVID HEENT Symptoms (Recalled from RN notes): Yes Resp Symptoms (Recalled from RN notes): Yes Skin Symptoms (Recalled from RN notes): No MS Symptoms (Recalled from RN notes): No Functional Status (Recalled from RN notes): WNL - History of Present Illness Provider Complaint: Patient state that she thinks she has a sinus infection but has been around several people at work that has tested positive for COVID States that she has been having sinus pain and pressure with yellowish green mucous from her nose States that she has been having headache and pressure behind her eyes feeling
[2021-09-13 19:08] VITALS: BP 128/86; PULSE 96; RESP 21; TEMP 37.1; O2SAT 100
== END 2021-09-13 19:13 | disposition home or self-care (01) ==
PROVIDERS: Emergency Provider Nurse Practitioner; PCP Physician Assistant
DX: J20.9 Acute bronchitis, unspecified (principal); J32.9 Chronic sinusitis, unspecified; E11.9 Type 2 diabetes mellitus without complications; Z20.822 Contact with and (suspected) exposure to COVID-19
CPT/HCPCS: 87804; 99202; C9803; G0463; U0003; U0005

== ENCOUNTER → 2021-11-12 13:04 | Outpatient (CLI) | payer MEDICAID, SELFPAY ==
[2021-12-03 13:16] LABS: Basophils # 0.1 K/mm3 (0-0.2); Basophils % 0.8 % (0.1-2.0); Eosinophils # 0.5 K/mm3 (0.0-0.4); Hematocrit 39.3 % (37.0-47.0); Lymphocytes # 3.2 K/mm3 (0.7-4.5); Mean Corpuscular HGB Conc 33.1 g/dL (31.8-35.4); Mean Corpuscular Hemoglobin 30.7 pg (27.0-31.2); Mean Corpuscular Volume 92.8 fl (81-99); Mean Platelet Volume 10.8 fl (7.4-10.4); Monocytes # 0.8 K/mm3 (0.1-1.0); Monocytes % 4.5 % (1.7-9.3); Neutrophils # 12.3 K/mm3 (1.8-7.8); Neutrophils % 72.7 % (37.0-80.0); Platelet Count 388 K/mm3 (142-424); Red Blood Count 4.23 M/mm3 (4.20-5.40); Red Cell Distribution Width 14.2 % (11.5-17.5); White Blood Count 16.9 K/mm3 (4.8-10.8)
[2021-12-03 13:21] LABS: Alanine Aminotransferase 25 U/L (12-78); Albumin/Globulin Ratio 1.7 (1.1-1.8); Alkaline Phosphatase 78 U/L (38-126); Anion Gap 12.2 mEq/L (5-15); Aspartate Amino Transferase 25 U/L (14-36); Bilirubin,Total 0.4 mg/dl (0.2-1.3); Blood Urea Nitrogen 5 mg/dl (7-17); Calcium 9.2 mg/dl (8.4-10.2); Carbon Dioxide 23 mmol/L (22.0-30.0); Chloride 103 mmol/L (98-107); Chol/HDL Ratio 7.4 (1-3.5); Cholesterol 236 mg/dl (140-200); Estimated Glomerular Filt Rate 173 ml/min (>60); GFR (African American) 210 ML/MIN (>60); Globulin 2.4 g/dL (1.3-3.2); Glucose 272 mg/dl (74-100); HDL Cholesterol 32 mg/dl (40-60); Potassium 4.2 mmoL/L (3.5-5.1); Sodium 134 mmol/L (136-145); Total Protein,Serum 6.4 g/dl (6.3-8.2); Triglycerides 402 mg/dl (30-150)
[2021-12-03 13:27] LABS: MANUAL DIFFERENTIAL MANUAL DIFFERENTIAL (MANUAL DIFF)
[2021-12-03 13:31] LABS: Direct LDL Cholesterol 142.49 mg/dL (100-129)
[2021-12-03 13:38] LABS: 25-OH Vitamin D, Total 44.4 ng/mL (30-100)
[2021-12-03 13:51] LABS: Thyroid Stimulating Hormone 0.23 uIU/mL (0.465-4.68)
[2021-12-03 16:26] LABS: Hemoglobin A1C 9.3 % (4.0-6.0)
[2021-12-03 17:12] LABS: Eosinophils % 2 % (0-3); Lymphocytes % 19 % (10-50); Monocytes % 5 % (2-9); Neutrophils % 73 % (42-76); Total Cells Counted 100
[2021-12-03 17:13] LABS: Platelet Estimate Normal; RBC Morphology Normal
[2021-12-04 11:12] LABS: C-Peptide 4.9 ng/mL (1.1-4.4)
== END ==
PROVIDERS: Visit Provider Physician Assistant
DX: E11.9 Type 2 diabetes mellitus without complications (principal); R35.0 Frequency of micturition; E66.9 Obesity, unspecified; Z68.35 Body mass index [BMI] 35.0-35.9, adult; Z79.899 Other long term (current) drug therapy; Z79.84 Long term (current) use of oral hypoglycemic drugs; B96.20 Unspecified Escherichia coli [E. coli] as the cause of diseases classified elsewhere
CPT/HCPCS: 80053; 80061; 82043; 82306; 83036; 84443; 84681; 85007; 85025; 87086; 87088; 87186

== ENCOUNTER 2021-11-12 20:58 | Emergency (ER) | payer MEDICAID, SELFPAY ==
[2021-11-12 21:18] VITALS: BP 124/81; PULSE 91; RESP 16; TEMP 36.8; O2SAT 97; BMI 34.6
--- NOTE | 2021-11-12 21:21 | HMH.EDGENADL ---
ED Disposition Clinical Impression: Viral URI with cough Disposition: Home, Self-Care Condition on Discharge: Good Additional Instructions: Okay to take Tylenol, Motrin as needed for temperatures greater than 100.4. Drink plenty fluids, stay hydrated. Continue any home medications as previously directed. Return to ED with new, worsening, concerning symptoms. Obtain results of the COVID-19 test via your patient portal. Referrals: Sabra Gamino PA [Primary Care Provider] - - Critical Care Critical Care Time: No Attestation: On 11/12/21, the high probability of a clinically significant, sudden or life threatening deterioration of the following system(s) required my full and direct attention, intervention and personal management. The time I documented below is in addition to time spent performing reported procedures but includes the following listed in this critical care notation. Medical Decision Making - Medical Records Medical records reviewed: Yes: I reviewed the patient's medical records. - Ramirez Inquiry Pt receiving controlled substance: No Orders (Tests/Meds): ORDERS Category Date Time Status Covid-19 Nasal PCR ([facility]) Routine Lab 11/12/21 21:06 Received Medical Decision Narrative: 46-year-old female with past medical history of asthma presenting to the ED with 1 to 2 days of cough, congestion, myalgias. Differential diagnosis include COVID-19, viral pharyngitis, viral upper respiratory infection, pneumonia.given this work-up will include COVID-19 swab, physical exam. Patient vital signs currently stable, she is on room air, speaking full sentences, no evidence of hypoxia. I do not feel that further labs or imaging studies are currently indicated. Patient is comfortable this plan, we will swab for COVID-19 and then discharge, she will obtain the results via her patient portal. General Adult HPI - General Stated complaint: sore throat, cough, SOA, Headache, weakness Time Seen by Provider: 11/12/21 21:22 Mode of Arrival: Ambulatory Source of Information: Patient Limitations: No Limitations - History of Present Illness HPI narrative: 46-year-old female who is presenting to the ED with 1 to 2 days of cough, congestion, myalgias. Patient is company by her son, they have both had upper respiratory infection-like symptoms, concerning for COVID-19. They are requesting to be tested for COVID-19. She admits to low-grade fevers however has not measured her temperature at home. They have taken graw-mus-dhxmdwy oral decongestants. Patient is fully vaccinated, she is speaking full sentences with stable vital signs on room air. She denies any abdominal pain, vomiting, diarrhea, no chest pain or shortness of breath. Patient has no other concerns. - Related Data Home Medications Medication Instructions Recorded Confirmed Blood Sugar Diagnostic [Blood See Rx Instructions .ROUTE 11/07/20 06/16/21 Glucose Test] .MEDSUPPLY Blood-Glucose Meter See Rx Instructions .ROUTE 11/07/20 06/16/21 .MEDSUPPLY Previous Rx's Medication Instructions Recorded atorvastatin 20 mg tablet 20 mg PO DAILY #90 tab 12/11/20 ergocalciferol (vitamin D2) 1,250 1,250 mcg PO WEEKLY #7 cap 12/11/20 mcg (50,000 unit) capsule metformin 1,000 mg tablet 1,000 mg PO BID #60 tab 04/17/21 gabapentin 300 mg capsule 300 mg PO HS #30 cap 05/19/21 glipizide 10 mg tablet, extended 10 mg PO DAILY #90 tab 05/19/21 release 24 hr albuterol sulfate 90 mcg/actuation 2 puff INHALATION QID PRN #8.5 g 06/02/21 aerosol inhaler albuterol sulfate 90 mcg/actuation 2 puff INHALATION QID PRN #8.5 g 06/02/21 aerosol inhaler levothyroxine 200 mcg tablet 200 mcg PO DAILY #90 tab 07/09/21 venlafaxine 75 mg capsule,extended 75 mg PO DAILY #90 cap 07/09/21 release 24 hr ciprofloxacin HCl 500 mg tablet 500 mg PO BID 5 Days #10 tab 08/05/21 levoFLOXacin [Levaquin 500mg 500 mg PO DAILY #7 tab 08/07/21 tab] lisinopril 10 mg tablet 10 m
[2021-11-12 21:42] VITALS: BP 124/81; PULSE 91; RESP 16; TEMP 36.8; O2SAT 97
== END 2021-11-12 21:44 | disposition home or self-care (01) ==
PROVIDERS: Emergency Provider Emergency Medicine; PCP Physician Assistant
DX: J06.9 Acute upper respiratory infection, unspecified (principal); E11.9 Type 2 diabetes mellitus without complications; J45.909 Unspecified asthma, uncomplicated; F17.210 Nicotine dependence, cigarettes, uncomplicated; Z79.899 Other long term (current) drug therapy
CPT/HCPCS: 99283; C9803; U0003; U0005

== ENCOUNTER → 2021-12-22 07:35 | Outpatient (CLI) | payer MEDICAID, SELFPAY ==
--- NOTE | 2021-12-22 07:35 | MR_ITS ---
FINAL REPORT CLINICAL HISTORY: Neck pain radiating into right arm, right arm numb. NECK PAIN. NUMBNESS AND TINGLING DOWN RT ARM. HEADACHE. NO INJURY OR TRAUMA. FINDINGS: Multiplanar MR imaging of the cervical spine was performed without contrast. On the sagittal T2-weighted images, disc degeneration is seen throughout. There is no evidence of fracture. The vertebral alignment is normal. The cervical spinal cord has an unremarkable appearance without evidence of mass, edema or syrinx. No significant canal stenosis is identified. The cervicomedullary junction is normal. C2-3: There is no significant canal stenosis or neural foraminal narrowing. C3-4: Central and left paracentral disc protrusion with mild left neural foraminal narrowing. C4-5: There is a small central disc protrusion without significant canal stenosis or neural foraminal narrowing. C5-6: Disc osteophyte complex and right foraminal disc protrusion with right C6 nerve root impingement. There is severe right and moderate left neural foraminal narrowing. C6-7: Disc osteophyte complex with mild left neural foraminal narrowing. C7-T1: There is no significant canal stenosis or neural foraminal narrowing. IMPRESSION: Multilevel degenerative disc disease with right foraminal disc protrusion at C5-6 resulting in right C6 nerve root impingement and severe right neural foraminal narrowing. Reviewed, Interpreted and Dictated by Robin Hodges III, MD Transcribed by Deja Briseno Authenticated by Robin Hodges III, MD on 12/22/2021 09:55:29 AM [facility]
== END ==
PROVIDERS: PCP Physician Assistant; Visit Provider Physician Assistant
DX: M54.2 Cervicalgia (principal); M54.12 Radiculopathy, cervical region
CPT/HCPCS: 72141; 76376

== ENCOUNTER → 2022-01-19 10:59 | Outpatient (POV) | payer MEDICAID, SELFPAY ==
[2022-01-19 12:31] VITALS: BP 147/93; PULSE 85; RESP 18; TEMP 36.7; O2SAT 99; BMI 33.3
--- NOTE | 2022-01-19 15:24 | HMH.PMCON ---
Assessment and Plan (1) Chronic neck pain Status: Acute Category: Medical Code(s): M54.2 - Cervicalgia; G89.29 - Other chronic pain (2) Degenerative disc disease, cervical Status: Acute Category: Medical Code(s): M50.30 - Other cervical disc degeneration, unspecified cervical region (3) Cervical radiculopathy Status: Acute Category: Medical Code(s): M54.12 - Radiculopathy, cervical region (4) Facet arthropathy, cervical Status: Acute Category: Medical Code(s): M47.812 - Spondylosis without myelopathy or radiculopathy, cervical region (5) Cervical spondylosis Status: Acute Category: Medical Code(s): M47.812 - Spondylosis without myelopathy or radiculopathy, cervical region - Assessment and plan all Dx Assessment and Plan for all problems:: IMAGING: FINAL REPORT CLINICAL HISTORY: Neck pain radiating into right arm, right arm numb. NECK PAIN. NUMBNESS AND TINGLING DOWN RT ARM. HEADACHE. NO INJURY OR TRAUMA. FINDINGS: Multiplanar MR imaging of the cervical spine was performed without contrast. On the sagittal T2-weighted images, disc degeneration is seen throughout. There is no evidence of fracture. The vertebral alignment is normal. The cervical spinal cord has an unremarkable appearance without evidence of mass, edema or syrinx. No significant canal stenosis is identified. The cervicomedullary junction is normal. C2-3: There is no significant canal stenosis or neural foraminal narrowing. C3-4: Central and left paracentral disc protrusion with mild left neural foraminal narrowing. C4-5: There is a small central disc protrusion without significant canal stenosis or neural foraminal narrowing. C5-6: Disc osteophyte complex and right foraminal disc protrusion with right C6 nerve root impingement. There is severe right and moderate left neural foraminal narrowing. C6-7: Disc osteophyte complex with mild left neural foraminal narrowing. C7-T1: There is no significant canal stenosis or neural foraminal narrowing. IMPRESSION: Multilevel degenerative disc disease with right foraminal disc protrusion at C5-6 resulting in right C6 nerve root impingement and severe right neural foraminal narrowing. Reviewed, Interpreted and Dictated by Robin Hodges III, MD Transcribed by Deja Briseno PLAN: Patient has been having worsening neck pain that radiates down to her right arm. Patient has a C6 nerve root impingement and severe right neural foraminal narrowing. We will schedule the patient for diagnostic medial branch block at bilateral C5-C6 and C6-C7. Risks and benefits of the procedure have been explained to the patient. Patient would like to proceed with the procedure. Patient is not on any blood thinners. Patient will also establish care with neurosurgery next week. Follow-up after the injection. Patient has been instructed to contact the clinic with any concerns before the next appointment. Dr. Chase has reviewed this note and agrees with this plan of care. This note was dictated using voice recognition software and make contain errors or omissions. HPI - Data of Consult Patient: new to practice Consult date: 01/19/22 Requesting Physician: DK Newton - Consult Narrative Reason for consult: Neck pain History of present illness: Ms. Bowers is a 46 year old female who presents today as a new patient. Patient is referred by Sabra Gamino PA-C. Thank you for the referral. Patient presents today with worsening neck pain that radiates down to her right arm. Denies any recent falls or traumas. Patient does work at [employer] and has been there for a year. She says that the pain is constant and worse whenever she does any cervical rotations. She has limited range of motion of her neck. She has tried dvaq-vfi-yjdjqyk medications and topical creams which does not seem to help. She also has done physical therapy that provided minimal relief. Her cervical MRI on 12/22/2021 show
== END ==
PROVIDERS: Visit Provider Student in an Organized Health Care Education/Training Program
DX: M50.10 Cervical disc disorder with radiculopathy, unspecified cervical region (principal); M47.892 Other spondylosis, cervical region; G89.29 Other chronic pain
CPT/HCPCS: 99202; G0463

== ENCOUNTER → 2022-01-22 11:29 | Outpatient (CLI) | payer MEDICAID, SELFPAY | PROVIDERS: PCP Physician Assistant; Visit Provider Physician Assistant | DX: N39.0 Urinary tract infection, site not specified (principal) | CPT/HCPCS: 87086 ==

== ENCOUNTER 2022-03-03 14:00 | Outpatient (RCR) | payer MEDICAID, SELFPAY | END 2022-04-29 14:35 | disposition home or self-care (01) | LOC: PT 14:00 | PROVIDERS: Visit Provider Physician Assistant | DX: M25.511 Pain in right shoulder (principal); S43.431D Superior glenoid labrum lesion of right shoulder, subsequent encounter | CPT/HCPCS: 97010; 97014; 97033; 97035; 97110; 97112; 97140; 97163; 97164; G0283 ==

== ENCOUNTER → 2022-03-03 15:22 | Outpatient (CLI) | payer MEDICAID, SELFPAY ==
[2022-03-03 15:58] LABS: Basophils # 0.2 K/mm3 (0-0.2); Basophils % 1.2 % (0.1-2.0); Eosinophils # 0.2 K/mm3 (0.0-0.4); Eosinophils % 1.4 % (0.1-12.0); Hematocrit 42.6 % (37.0-47.0); Hemoglobin 13.9 g/dL (12.2-16.2); Lymphocytes # 3.2 K/mm3 (0.7-4.5); Mean Corpuscular HGB Conc 32.6 g/dL (31.8-35.4); Mean Corpuscular Hemoglobin 31.8 pg (27.0-31.2); Mean Corpuscular Volume 97.4 fl (81-99); Mean Platelet Volume 9.8 fl (7.4-10.4); Monocytes # 0.7 K/mm3 (0.1-1.0); Monocytes % 5.5 % (1.7-9.3); Neutrophils # 9.1 K/mm3 (1.8-7.8); Platelet Count 340 K/mm3 (142-424); Red Blood Count 4.37 M/mm3 (4.20-5.40); Red Cell Distribution Width 13.6 % (11.5-17.5); White Blood Count 13.4 K/mm3 (4.8-10.8)
[2022-03-03 16:45] LABS: Alanine Aminotransferase 28 U/L (12-78); Albumin/Globulin Ratio 1.5 (1.1-1.8); Alkaline Phosphatase 72 U/L (38-126); Anion Gap 15.5 mEq/L (5-15); Aspartate Amino Transferase 27 U/L (14-36); Bilirubin,Total 0.4 mg/dl (0.2-1.3); Blood Urea Nitrogen 8 mg/dl (7-17); Calcium 8.9 mg/dl (8.4-10.2); Carbon Dioxide 24 mmol/L (22.0-30.0); Chloride 100 mmol/L (98-107); Estimated Glomerular Filt Rate 134 ml/min (>60); GFR (African American) 162 ML/MIN (>60); Globulin 2.6 g/dL (1.3-3.2); Glucose 179 mg/dl (74-100); Potassium 4.5 mmoL/L (3.5-5.1); Sodium 135 mmol/L (136-145); Total Protein,Serum 6.6 g/dl (6.3-8.2)
[2022-03-03 19:22] LABS: Urine Pregnancy, HCG Qual. Negative (Negative)
== END ==
PROVIDERS: PCP Physician Assistant; Visit Provider Surgery
DX: Z01.812 Encounter for preprocedural laboratory examination (principal); Z20.822 Contact with and (suspected) exposure to COVID-19; K80.20 Calculus of gallbladder without cholecystitis without obstruction
CPT/HCPCS: 36415; 80053; 81025; 85025; C9803; U0003; U0005

== ENCOUNTER → 2022-03-05 07:45 | Day surgery (SDC) | payer MEDICAID, SELFPAY ==
[2022-03-04 10:40] VITALS: BMI 33.3
[2022-03-05 08:06] VITALS: BP 121/75; PULSE 88; RESP 20; TEMP 36.4; O2SAT 97
[2022-03-05 08:24] LABS: POC Glucose,Bedside 174 (70-110)
--- NOTE | 2022-03-05 08:37 | HMH.ANESCL ---
[facility] Anesthesia Checklist - Patient Identification Patient Identification: Arm Band, Verbal (Name & ) - Structural Data Admitted From: Home Planned Operative Procedure/s: Laparascopic Cholecystectomy Consent for Planned Operative Procedure(s) Verified: Yes Verified Documents: Surgical Consent - Chart Verification Results Verified: CBC, BMP - Additional verifications Anesthesia Reactions: Yes (N/V for days) Hx Blood Transfusions: No Blood Transfusion Reaction: No - Airway Assessment C-Spine Mobility Assessed: Yes TMJ Mobility Assessed: Yes Dentition: Edentulous - Neurological Assessment Level of Consciousness: Awake, Alert, Appropriate - Anesthesia Plan Anesthesia Risk discussed: Yes ASA Class: II Anesthesia Type: General [facility] History I have reviewed the patient's past medical history: Yes Medical History: Reports:: Asthma, Cancer (thyroid), Depression, Diabetes Mellitus Type 2, Hyperlipidemia, Hypertension Denies:: Diabetes Mellitus Type 1, Internal Pacemaker, MRSA, Seizures *Have you ever received a pneumonia vaccine?: No *Have you received a flu vaccine this season?: No Other Medical History: Denies: Blood Transfusion Reaction Anesthesia experience/problems:: PONV Other Surgeries: Yes: Cancer Surgery, , Thyroidectomy, Tubal Ligation. No: Pacemaker Amputation: No Fractures: No - *Social History Last grade of school completed: Some college Smoking Status: Current every day smoker Tobacco Type: cigarettes # Packs/Day (cigarettes): 1 Alcohol Intake: never Alcohol Intake Frequency:: holidays/special occasions only Substance Use Type: denies use *Occupational Status:: employed Housing: house Household Members: spouse, family *Travel in the last 8 weeks: None - Psychiatric History Pschychiatric History:: Reports:: Depression Family Hx:: No significant family history
--- NOTE | 2022-03-05 11:30 | SUR.PREOP ---
PROCEDURE RESCHEDULED PER DR JEFFERSON. PT IN AGREEMENT WITH RESCHEDULING DUE TO SURGERY BEING DELAYED.
== END ==
PROVIDERS: PCP Physician Assistant; Visit Provider Surgery
PROC: 0FT44ZZ Resection of Gallbladder, Percutaneous Endoscopic Approach (ICD-10-PCS; CPT 47562; principal; 2022-03-05 09:15)
DX: K80.20 Calculus of gallbladder without cholecystitis without obstruction (principal); E11.9 Type 2 diabetes mellitus without complications; J45.909 Unspecified asthma, uncomplicated; E78.5 Hyperlipidemia, unspecified; I10 Essential (primary) hypertension; Z72.0 Tobacco use
CPT/HCPCS: 82962

== ENCOUNTER → 2022-03-12 12:53 | Outpatient (CLI) | payer MEDICAID, SELFPAY | PROVIDERS: PCP Physician Assistant; Visit Provider Surgery | DX: Z01.812 Encounter for preprocedural laboratory examination (principal); Z20.822 Contact with and (suspected) exposure to COVID-19; K80.20 Calculus of gallbladder without cholecystitis without obstruction | CPT/HCPCS: C9803; U0003; U0005 ==

== ENCOUNTER 2022-03-13 06:07 | Day surgery (SDC) | payer MEDICAID, SELFPAY ==
[2022-03-11 11:08] VITALS: BMI 33.3
[2022-03-13] VITALS (22 sets, daily range): BP systolic 107–140; BP diastolic 60–81; PULSE 91–112; RESP 16–20; TEMP 36.3–43; O2SAT 93–99
[2022-03-13 06:44] LABS: Urine Pregnancy, HCG Qual. Negative (Negative)
--- NOTE | 2022-03-13 08:26 | HMH.ANESCL ---
[facility] Anesthesia Checklist - Patient Identification Patient Identification: Arm Band, Verbal (Name & ) - Structural Data Admitted From: Home Planned Operative Procedure/s: Laparascopic Cholecystectomy Consent for Planned Operative Procedure(s) Verified: Yes Verified Documents: Surgical Consent - NPO Status Verified Time NPO: 00:00 - Chart Verification Results Verified: HCG - Additional verifications Anesthesia Reactions: Yes (N/V for days) Hx Blood Transfusions: No Blood Transfusion Reaction: No - Airway Assessment C-Spine Mobility Assessed: Yes TMJ Mobility Assessed: Yes Dentition: Edentulous - Neurological Assessment Level of Consciousness: Awake, Alert, Appropriate - Anesthesia Plan Anesthesia Risk discussed: Yes ASA Class: III Anesthesia Type: General [facility] History I have reviewed the patient's past medical history: Yes Medical History: Reports:: Asthma, Cancer, Depression, Diabetes Mellitus Type 2, Hyperlipidemia, Hypertension Denies:: Diabetes Mellitus Type 1, Internal Pacemaker, MRSA, Seizures *Have you ever received a pneumonia vaccine?: No *Have you received a flu vaccine this season?: No Other Medical History: Denies: Blood Transfusion Reaction Anesthesia experience/problems:: none Other Surgeries: Yes: Cancer Surgery, , Thyroidectomy, Tubal Ligation. No: Pacemaker Amputation: No Fractures: No - *Social History Last grade of school completed: Some college Smoking Status: Current every day smoker Tobacco Type: cigarettes # Packs/Day (cigarettes): 1 Alcohol Intake: never Alcohol Intake Frequency:: holidays/special occasions only Substance Use Type: denies use *Occupational Status:: unemployed Housing: house Household Members: spouse, family *Travel in the last 8 weeks: None - Psychiatric History Pschychiatric History:: Reports:: Depression Family Hx:: No significant family history
--- NOTE | 2022-03-13 08:57 | NM_ITS ---
FINAL REPORT TECHNIQUE: The patient was injected with 7.86 mCi of technetium 99m Choletec. Images of the abdomen were obtained for one hour. CLINICAL HISTORY: Evaluate for postoperative injury FINDINGS: There is normal uptake by the liver. The bile ducts and bowel are visualized by 10 minutes. After 60 minutes there is no focal area of abnormal tracer activity to suggest bile leak. IMPRESSION: No findings to suggest bile leak. Reviewed, Interpreted and Dictated by Robin Hodges III, MD Transcribed by Justice Watson Authenticated and [facility]
--- NOTE | 2022-03-13 08:59 | P.OP_ITS ---
Date of procedure: 03/13/22 Pre-op Diagnosis:: Symptomatic cholelithiasis Post-op Diagnosis:: Chronic calculus cholecystitis Procedure performed:: Laparoscopic cholecystectomy Surgeon:: Durga Munguia MD Anesthesia: GETA Estimated blood loss (mL): 15 Operative findings:: Severe inflammatory changes with chronic tissue thickening and adhesions throughout the anterior aspect of the gallbladder. Increased inflammatory changes and adherence with tissue thickening in and around the infundibular region Infundibular rent (Possible cystic duct rent) noted during dissection Endoloops (x2) placed at infundibulum (incorporation of rent to the degree possible) Operative note:: After informed consent was obtained, the patient was taken to the operating room and placed in the supine position. General anesthesia was induced and the abdomen was prepped and draped in a sterile fashion. After infiltration with local anesthetic an infraumbilical incision was made. A Veress needle was placed in position. The abdomen was insufflated. A 5 mm optical trocar was placed in position. Under direct visualization, a 12 mm trocar was placed in the subxiphoid position and 2 additional 5 mm trocars were placed in the right upper quadrant. The gallbladder was elevated up and over the liver margin. Severe tissue thickening anteriorly noted. A combination of blunt dissection and harmonic sean were utilized to carefully dissect along the anterior margin of the gallbladder. Tissue thickening increased in and around the infundibular region. A small rent was noted at the infundibular margin with possible advancement to the cystic duct. Transection above the infundibulum was then completed with harmonic sean in order to allow placement of Endoloops. The infundibulum with a visible rent was carefully elevated. Endoloops (x2) were placed in position. No obvious bile leak noted. No definitive injury to the common bile duct noted (dissection and tissue elevation completed only to the margin of the infundibulum; however, visualization was very limited secondary to the above-stated inflammatory changes). The gallbladder was then dissected free from the liver margin utilizing harmonic sean. The gallbladder was placed in a retrieval bag and removed through the subxiphoid trocar site. #10 flat Sixto-Martinez drains were placed in the gallbladder fossa and exited through the right upper quadrant trocar sites. The drains were secured with interrupted nylon suture. No active bleeding or bile leak was noted. Fascia at the subxip hoid trocar site was reapproximated utilizing the NeoClose device. The remaining trocars were removed. All wounds were irrigated and skin was closed with 4-0 Monocryl in a subcuticular fashion. Steri-Strips were applied. The patient's anesthetic agents were reversed and extubation was completed prior to transfer to recovery in stable condition. Condition: stable Disposition: PACU Specimens:: Gallbladder Complications:: No immediate. Hepatobiliary scan pending
--- NOTE | 2022-03-13 09:12 | P.PN_ITS ---
[facility] Anesthesia Record Part I Intake, IV Amount: 1,200 Estimated blood loss (mL): 1 Urine output (mL): 0 Blood Pressure: 123/69 SaO2: 98 Pulse Rate: 105 Respiratory Rate: 16 Temperature: 97.6 F Patient is:: Drowsy Stable to PACU at:: 09:07
[2022-03-13 09:37] LABS: POC Glucose,Bedside 176 (70-110)
[2022-03-13 09:59] LABS: POC Glucose,Bedside 174 (70-110)
[2022-03-13 10:24] LABS: Alanine Aminotransferase 35 U/L (12-78); Albumin Level 3.7 g/dl (3.5-5.0); Alkaline Phosphatase 68 U/L (38-126); Aspartate Amino Transferase 54 U/L (14-36); Bilirubin,Direct 0.1 mg/dl (0.0-0.4); Bilirubin,Indirect 0.2 mg/dL (0.0-0.9); Bilirubin,Total 0.3 mg/dl (0.2-1.3); Bilirubin,Unconjugated 0.2 mg/dL (0.0-1.1); Total Protein,Serum 6.1 g/dl (6.3-8.2)
--- NOTE | 2022-03-13 11:31 | SUR.PHASEII ---
1045- Pt states nausea has subsided s/p phenergan administration. Denies discomfort at this time. Resting per stretcher, sleeping intermittently.
--- NOTE | 2022-03-13 13:52 | SUR.PHASEII ---
1245: Pt martita to Radiology for HIDA scan per stretcher accompanied per Radiology staff.
--- NOTE | 2022-03-13 14:43 | SUR.PHASEII ---
1415- Pt reurned from Radiology per stretcher. Report received, no leakage on HIDA scan. Dr Munguia notified. Pt given po fluids and pain medication as ordered. 25cc serous fluid total drained from LISA drains x2
--- NOTE | 2022-03-16 07:15 | HMH.ANESII ---
[facility] Anesthesia Record Part II Discharge Time: 09:44 Destination: Surgical Day Care (OP Surgery) PACU nurse assessment reviewed?: Yes Patient Condition:: Good Anesthesia Complications:: None Swallowing reflex intact?: Yes Cyanosis?: No Blood Pressure: 116/72 Pulse Rate: 100 Temperature: 97.5 F Mental Status: Alert & Oriented Pain level:: 0 Nausea and/or vomitting:: None Intake, IV Amount: 0
[2022-03-16 07:16] VITALS: BP 116/72; PULSE 100; TEMP 36.4
== END 2022-03-13 14:45 | disposition home or self-care (01) ==
PROVIDERS: Surgery; PCP Physician Assistant; Visit Provider Surgery
PROC: 0FT44ZZ Resection of Gallbladder, Percutaneous Endoscopic Approach (ICD-10-PCS; CPT 47562; principal; 2022-03-13 07:30)
DX: K80.10 Calculus of gallbladder with chronic cholecystitis without obstruction (principal); E11.9 Type 2 diabetes mellitus without complications; J45.909 Unspecified asthma, uncomplicated; F32.A Depression, unspecified; E78.5 Hyperlipidemia, unspecified; I10 Essential (primary) hypertension; Z72.0 Tobacco use; Z79.84 Long term (current) use of oral hypoglycemic drugs; Z79.899 Other long term (current) drug therapy
CPT/HCPCS: 47562; 36415; 78226; 80076; 81025; 82962; 96374; A9537; J2405

== ENCOUNTER 2022-03-16 03:35 | Emergency (ER) | payer MEDICAID, SELFPAY ==
[2022-03-16 04:00] VITALS: BP 141/84; PULSE 96; RESP 18; TEMP 37.2; O2SAT 98; BMI 33.3
[2022-03-16 04:15] LABS: Basophils # 0.2 K/mm3 (0-0.2); Basophils % 1.1 % (0.1-2.0); Eosinophils # 0.3 K/mm3 (0.0-0.4); Eosinophils % 1.8 % (0.1-12.0); Hemoglobin 13.2 g/dL (12.2-16.2); Lymphocytes # 3.7 K/mm3 (0.7-4.5); Lymphocytes % 25.7 % (10-50); Mean Corpuscular HGB Conc 32.9 g/dL (31.8-35.4); Mean Corpuscular Volume 97.3 fl (81-99); Mean Platelet Volume 9.4 fl (7.4-10.4); Monocytes # 0.7 K/mm3 (0.1-1.0); Monocytes % 5.1 % (1.7-9.3); Neutrophils # 9.6 K/mm3 (1.8-7.8); Neutrophils % 66.3 % (37.0-80.0); Platelet Count 328 K/mm3 (142-424); Red Blood Count 4.11 M/mm3 (4.20-5.40); Red Cell Distribution Width 13.8 % (11.5-17.5); White Blood Count 14.5 K/mm3 (4.8-10.8)
[2022-03-16 04:19] LABS: Anion Gap 12.4 mEq/L (5-15); Blood Urea Nitrogen 8 mg/dl (7-17); Calcium 8.4 mg/dl (8.4-10.2); Carbon Dioxide 27 mmol/L (22.0-30.0); Chloride 101 mmol/L (98-107); Creatinine Clearance Estimated 257 mL/min (50-200); Estimated Glomerular Filt Rate 173 ml/min (>60); GFR (African American) 210 ML/MIN (>60); Glucose 179 mg/dl (74-100); Magnesium 1.1 mg/dl (1.6-2.3); Potassium 3.4 mmoL/L (3.5-5.1); Sodium 137 mmol/L (136-145)
[2022-03-16 04:24] LABS: C-Reactive Protein 18.1 mg/L (0-4)
[2022-03-16 04:38] LABS: Procalcitonin 0.038 ng/mL (0.0-2.0)
[2022-03-16 04:40] LABS: Alanine Aminotransferase 33 U/L (12-78); Albumin Level 3.9 g/dl (3.5-5.0); Alkaline Phosphatase 77 U/L (38-126); Aspartate Amino Transferase 32 U/L (14-36); Bilirubin,Direct 0.1 mg/dl (0.0-0.4); Bilirubin,Indirect 0.3 mg/dL (0.0-0.9); Bilirubin,Total 0.4 mg/dl (0.2-1.3); Bilirubin,Unconjugated 0.4 mg/dL (0.0-1.1); Total Protein,Serum 6.7 g/dl (6.3-8.2)
[2022-03-16 04:48] VITALS: BP 139/81; PULSE 90; RESP 18; TEMP 37.2; O2SAT 98
--- NOTE | 2022-03-16 04:49 | HMH.EDNVD ---
ED Disposition Clinical Impression: Post-op pain, Sixto jules drain site pain Disposition: Home, Self-Care Condition on Discharge: Good Instructions: DI for Sixto-Jules Drains Additional Instructions: continue present care Referrals: Sabra Gamino PA [Primary Care Provider] - Durga Munguia MD [Staff Physician] - - Critical Care Critical Care Time: No Attestation: On 03/16/22, the high probability of a clinically significant, sudden or life threatening deterioration of the following system(s) required my full and direct attention, intervention and personal management. The time I documented below is in addition to time spent performing reported procedures but includes the following listed in this critical care notation. Medical Decision Making - Medical Records Medical records reviewed: Yes: I reviewed the patient's medical records. - Ramirez Inquiry Pt receiving controlled substance: No Vital Signs: 03/16/22 04:00 03/16/22 04:48 Temperature 98.9 F 98.9 F Temperature Source Oral Pulse Rate 90 Pulse Rate [Apical] 96 H Respiratory Rate 18 18 Blood Pressure 139/81 Blood Pressure [Right Arm] 141/84 H Blood Pressure Mean [Right Arm] 103 Blood Pressure Source [Right Arm] Automatic Cuff Blood Pressure Position [Right Arm] Sitting 02 Sat by Pulse Oximetry 98 Oxygen Delivery Method Room Air - Lab Data Lab results reviewed: Yes: I reviewed the patient's lab results. Lab Results 03/16/22 04:00: WBC 14.5 H, RBC 4.11 L, Hgb 13.2, Hct 40.0, MCV 97.3, MCH 32.0 H, MCHC 32.9, RDW 13.8, Plt Count 328, MPV 9.4, Neut % (Auto) 66.3, Lymph % (Auto) 25.7, Laurens % (Auto) 5.1, Eos % (Auto) 1.8, Baso % (Auto) 1.1, Neut # (Auto) 9.6 H, Lymph # (Auto) 3.7, Laurens # (Auto) 0.7, Eos # (Auto) 0.3, Baso # (Auto) 0.2, ESR 40 H 03/16/22 04:00: Sodium 137, Potassium 3.4 L, Chloride 101, Carbon Dioxide 27, Anion Gap 12.4, BUN 8, Creatinine 0.40 L, Estimated Creat Clear 257, Estimated GFR 173, Est GFR ( Amer) 210, Glucose 179 H, Calcium 8.4, Magnesium 1.1 L, C-Reactive Protein 18.1 H, Procalcitonin 0.038 03/16/22 04:00: Total Bilirubin 0.4, Direct Bilirubin 0.1, Conjugated Bilirubin 0.0, Indirect Bilirubin 0.3, Unconjugated Bilirubin 0.4, AST 32 D, ALT 33, Alkaline Phosphatase 77, Total Protein 6.7, Albumin 3.9 Result diagrams: 03/16/22 04:00 03/16/22 04:00 - Physician Consults Physician Consulted: ruben Reason -: Pt condition Medical Decision Narrative: stable exam and labs Nausea/Vomiting/Diarrhea HPI - General Chief complaint: Skin/Abscess/Foreign Body Stated complaint: gallbladder surgery 03/13/22, drainage tube issues Time Seen by Provider: 03/16/22 04:20 Mode of Arrival: Ambulatory Source of Information: Patient, Medical Record Limitations: No Limitations Description of Symptoms (Recalled from ER Triage Doc. by RN): Patient states that she had her gallbladder removed by Dr. Munguia on Wednesday. She was discharged with two damaris drains and 4 lap sites. Pt states told her to come to the emergency room if she noticed any drainage on her dressings with her damaris sites or any increased draining or decreased draining in either drain. Pt states that she has noticed an increase in drainage in her right damaris drain and a decrease in drainage in her left damaris drain. - History of Present Illness HPI Narrative: had recent gb surg - has j/p drains and concerned that one is draining and other more - serosang drainage MD complaint: other (drainage ) Onset (ago): day(s) Associated Abdominal Pain: Yes Severity: moderate Associated symptoms: denies other symptoms - Related Data Home Medications Medication Instructions Recorded Confirmed Atorvastatin Calcium [Lipitor 40mg 40 mg PO HS 01/19/22 03/16/22 Tab] Levothyroxine Sodium [Synthroid] 200 mcg PO DAILY 01/19/22 03/16/22 Semaglutide [Ozempic] 0.5 mg SQ WEEKLY 01/19/22 03/16/22 Sitagliptin Phosphate [Januvia] 100 mg PO DAILY 01/19/22 03/16/22 Ve
[2022-03-16 04:51] LABS: Erythrocyte Sedimentation Rate 40 mm/hr (0-20)
== END 2022-03-16 05:20 | disposition home or self-care (01) ==
PROVIDERS: Emergency Provider Emergency Medicine; PCP Physician Assistant
DX: G89.18 Other acute postprocedural pain (principal); Z97.8 Presence of other specified devices; Z90.49 Acquired absence of other specified parts of digestive tract; E11.9 Type 2 diabetes mellitus without complications; I10 Essential (primary) hypertension; E78.5 Hyperlipidemia, unspecified; J45.909 Unspecified asthma, uncomplicated; F32.A Depression, unspecified; E89.0 Postprocedural hypothyroidism; Z85.9 Personal history of malignant neoplasm, unspecified; Z72.0 Tobacco use
CPT/HCPCS: 80048; 80076; 83735; 84145; 85025; 85651; 86140; 99282

== ENCOUNTER 2022-03-22 16:20 | Inpatient (IN) | payer MEDICAID, SELFPAY ==
[2022-03-22] VITALS (7 sets, daily range): BP systolic 100–127; BP diastolic 57–80; PULSE 87–114; RESP 18–22; TEMP 36.9–37.2; O2SAT 96–100; BMI 33.3
--- NOTE | 2022-03-22 16:34 | CT_ITS ---
PROCEDURE INFORMATION: Exam: CT Abdomen And Pelvis With Contrast Exam date and time: 03/22/2022 5:03 PM Age: 46 years old Clinical indication: Abdominal pain; Flank; Right lower quadrant (rlq); Patient HX: Recent choleycystectomy; Additional info: Rlq, RT flank pain, recent choleycystectomy TECHNIQUE: Imaging protocol: Computed tomography of the abdomen and pelvis with contrast. Radiation optimization: All CT scans at this facility use at least one of these dose optimization techniques: automated exposure control; mA and/or kV adjustment per patient size (includes targeted exams where dose is matched to clinical indication); or iterative reconstruction. Contrast material: ISOVUE; Contrast volume: 75 ml; Contrast route: IV; COMPARISON: CT ABDOMEN PELVIS WO CON 08/07/2021 1:39 AM FINDINGS: Liver: Hepatic steatosis. Gallbladder and bile ducts: There is a 2 cm low-attenuation structure with peripheral enhancement versus calcification in the gallbladder fossa on image 32 series 2. On prior study, there was a gallstone in the gallbladder with similar appearance and size. Mild edema in the gallbladder fossa due to recent surgery. Pancreas: Normal. No ductal dilation. Spleen: Normal. No splenomegaly. Adrenal glands: Normal. No mass. Kidneys and ureters: Right ureteral wall thickening and periureteral edema. Stomach and bowel: There is a drain in the right upper quadrant with the tip along the posterior margin of the stomach. Appendix: Unremarkable appendix. Intraperitoneal space: Unremarkable. No free air. No significant fluid collection. Vasculature: The arteries demonstrate minimal atherosclerotic disease. Lymph nodes: Unremarkable. No enlarged lymph nodes. Urinary bladder: Urinary bladder wall thickening. Reproductive: Left ovarian simple 3.2 cm cyst is noted. This is likely a simple cyst. For a patient of this age, no follow-up is warranted. Bones/joints: Unremarkable. No acute fracture. Soft tissues: Tiny fat containing umbilical hernia. IMPRESSION: 1. Right ureteral wall thickening and periureteral edema. This is most likely ascending urinary tract infection. 2. There is a 2 cm low-attenuation structure with peripheral enhancement versus calcification in the gallbladder fossa on image 32 series 2. On prior study, there was a gallstone in the gallbladder with similar appearance and size. This could be a 2 cm developing abscess or a dropped gallstone. 3. Hepatic steatosis. 4. Unremarkable appendix.
[2022-03-22 16:39] LABS: Microscopic, Urine URINE MICROSCOPIC (MICROSCOPIC)
[2022-03-22 16:55] LABS: Appearance,Urine CLEAR (Clear); Blood, Urine 3+ (Negative); Color,Urine YELLOW (Yellow); Glucose,Urine (UA) TRACE (Negative); Ketones,Urine 1+ (Negative); Leukocyte Esterase,Urine 2+ (Negative); Nitrate,Urine POSITIVE (Negative); Protein,Urine 3+ (Negative); Specific Gravity, Urine 1.025 (1.005-1.030)
[2022-03-22 17:00] LABS: Bilirubin,Urine 2+ (Negative)
[2022-03-22 17:01] LABS: Basophils # 0.2 K/mm3 (0-0.2); Basophils % 0.7 % (0.1-2.0); Eosinophils # 0.3 K/mm3 (0.0-0.4); Eosinophils % 1.1 % (0.1-12.0); Hematocrit 41.4 % (37.0-47.0); Hemoglobin 14.1 g/dL (12.2-16.2); Lymphocytes # 3.9 K/mm3 (0.7-4.5); Lymphocytes % 13.3 % (10-50); Mean Corpuscular HGB Conc 34.2 g/dL (31.8-35.4); Mean Corpuscular Hemoglobin 31.2 pg (27.0-31.2); Mean Corpuscular Volume 91.3 fl (81-99); Mean Platelet Volume 8.7 fl (7.4-10.4); Monocytes # 1.4 K/mm3 (0.1-1.0); Monocytes % 4.6 % (1.7-9.3); Neutrophils # 23.7 K/mm3 (1.8-7.8); Neutrophils % 80.3 % (37.0-80.0); Platelet Count 520 K/mm3 (142-424); Red Blood Count 4.53 M/mm3 (4.20-5.40); White Blood Count 29.5 K/mm3 (4.8-10.8)
[2022-03-22 17:03] LABS: MANUAL DIFFERENTIAL MANUAL DIFFERENTIAL (MANUAL DIFF)
--- NOTE | 2022-03-22 17:23 | PC.NURSE ---
Pt returned from CT
[2022-03-22 17:30] LABS: Alanine Aminotransferase 35 U/L (12-78); Albumin Level 4.3 g/dl (3.5-5.0); Albumin/Globulin Ratio 1.3 (1.1-1.8); Alkaline Phosphatase 114 U/L (38-126); Anion Gap 17.8 mEq/L (5-15); Aspartate Amino Transferase 31 U/L (14-36); Bilirubin,Total 0.5 mg/dl (0.2-1.3); Blood Urea Nitrogen 5 mg/dl (7-17); Carbon Dioxide 23 mmol/L (22.0-30.0); Chloride 101 mmol/L (98-107); Creatinine Clearance Estimated 171 mL/min (50-200); Estimated Glomerular Filt Rate 109 ml/min (>60); GFR (African American) 131 ML/MIN (>60); Globulin 3.4 g/dL (1.3-3.2); Glucose 208 mg/dl (74-100); Potassium 3.8 mmoL/L (3.5-5.1); Sodium 138 mmol/L (136-145); Total Protein,Serum 7.7 g/dl (6.3-8.2)
[2022-03-22 17:32] LABS: Coronavirus 19, PCR Not Detected (NotDetected); Influenza A, PCR Not Detected (NotDetected); Influenza B, PCR Not Detected (NotDetected)
[2022-03-22 17:33] LABS: HCG Qualitative, Serum Negative (Negative)
[2022-03-22 17:34] LABS: Bacteria,Urine 2+ /lpf
--- NOTE | 2022-03-22 17:34 | PC.NURSE ---
PT PAIN COMING BACK NEW ORDERS GIVEN
[2022-03-22 17:35] LABS: Lactic Acid 3.8 mmol/L (0.7-2.1)
[2022-03-22 17:57] LABS: Eosinophils % 2 % (0-3); Lymphocytes % 23 % (10-50); Monocytes % 6 % (2-9); Neutrophils % 69 % (42-76); Platelet Estimate Marked Increase; Total Cells Counted 100
--- NOTE | 2022-03-22 18:14 | PC.NURSE ---
PT RESTING FAMILY AT BEDSIDE
--- NOTE | 2022-03-22 18:59 | HMH.EDABDPAI ---
ED Disposition Clinical Impression: UTI (urinary tract infection) Qualifiers: Urinary tract infection type: site unspecified Hematuria presence: without hematuria Qualified Code(s): N39.0 - Urinary tract infection, site not specified Disposition: Admitted As Inpatient Condition on Discharge: Fair Referrals: Sabra Gamino PA [Primary Care Provider] - - Critical Care Critical Care Time: No Attestation: On 03/22/22, the high probability of a clinically significant, sudden or life threatening deterioration of the following system(s) required my full and direct attention, intervention and personal management. The time I documented below is in addition to time spent performing reported procedures but includes the following listed in this critical care notation. Medical Decision Making - Medical Records Medical records reviewed: Yes: I reviewed the patient's medical records. - Ramirez Inquiry Pt receiving controlled substance: No Vital Signs: 03/22/22 16:21 03/22/22 17:36 03/22/22 18:00 Temperature 98.4 F Temperature Source Oral Pulse Rate 89 102 H Pulse Rate [Right Radial] 113 H Respiratory Rate 22 18 18 Blood Pressure 113/61 117/66 Blood Pressure [Right Arm] 100/68 L Blood Pressure Mean 78 84 Blood Pressure Mean [Right Arm] 78 Blood Pressure Source [Right Arm] Automatic Cuff Blood Pressure Position [Right Arm] Sitting 02 Sat by Pulse Oximetry 100 98 98 Oxygen Delivery Method Room Air 03/22/22 18:31 03/22/22 19:00 Temperature Temperature Source Pulse Rate 114 H 112 H Pulse Rate [Right Radial] Respiratory Rate 18 Blood Pressure 105/57 L 124/60 Blood Pressure [Right Arm] Blood Pressure Mean 86 81 Blood Pressure Mean [Right Arm] Blood Pressure Source [Right Arm] Blood Pressure Position [Right Arm] 02 Sat by Pulse Oximetry 96 99 Oxygen Delivery Method Room Air - Lab Data Lab Results 03/22/22 16:25: Urine Color Yellow, Urine Appearance Clear, Urine pH 6.0, Ur Specific [place] 1.025, Urine Protein 3+, Urine Glucose (UA) Trace, Urine Ketones 1+, Urine Blood 3+, Urine Nitrate Positive, Urine Bilirubin 2+ A, Urine Urobilinogen 1.0, Ur Leukocyte Esterase 2+ A, Urine RBC 10-20, Urine WBC 10-20, Ur Squamous Epith Cells 5-10, Urine Bacteria 2+ 03/22/22 16:45: WBC 29.5 H*, RBC 4.53, Hgb 14.1, Hct 41.4, MCV 91.3, MCH 31.2, MCHC 34.2, RDW 13.0, Plt Count 520 H, MPV 8.7, Neut % (Auto) 80.3 H, Lymph % (Auto) 13.3, [place] % (Auto) 4.6, Eos % (Auto) 1.1, Baso % (Auto) 0.7, Neut # (Auto) 23.7 H, Lymph # (Auto) 3.9, [place] # (Auto) 1.4 H, Eos # (Auto) 0.3, Baso # (Auto) 0.2, Total Counted 100, Neutrophils % (Manual) 69, Lymphocytes % (Manual) 23, Monocytes % (Manual) 6, Eosinophils % (Manual) 2, Platelet Estimate Marked increase 03/22/22 16:45: Sodium 138, Potassium 3.8, Chloride 101, Carbon Dioxide 23, Anion Gap 17.8 H, BUN 5 L, Creatinine 0.60, Estimated Creat Clear 171, Estimated GFR 109, Est GFR ( Amer) 131, Glucose 208 H, Calcium 9.0, Total Bilirubin 0.5, AST 31, ALT 35, Alkaline Phosphatase 114, Total Protein 7.7, Albumin 4.3, Globulin 3.4 H, Albumin/Globulin Ratio 1.3 03/22/22 16:45: Serum HCG, Qual Negative 03/22/22 16:45: Lactate 3.8 H 03/22/22 17:25: SARS-CoV-2 (PCR) Not detected, Influenza A Untype (PCR) Not detected, Influenza Type B (PCR) Not detected Result diagrams: 03/22/22 16:45 03/22/22 16:45 Orders (Tests/Meds): ED MEDICATIONS Generic Name Dose Route Start Last Admin Trade Name Freq PRN Reason Stop Dose Admin Acetaminophen 650 mg 03/22/22 20:03 Acetaminophen 325mg Tab PO 04/21/22 20:02 Q4HP PRN Fever or Mild Pain Hydromorphone HCl 1 mg 03/22/22 19:59 Hydromorphone 2mg/Ml Syringe IV 04/21/22 19:58 Q4HP PRN Moderate to Severe Pain Vancomycin/PEG/NADA/Lysine/Water 1.5 gm in 300 mls @ 150 mls/hr 03/22/22 19:15 Vancomycin 1.5gm/300ml (Peg) Premix IV 03/22/22 21:14 ONCE ONE Vancomycin HCl 1,000 mg/ 250 mls @ 125 m
--- NOTE | 2022-03-22 18:59 | PC.NURSE ---
Paging surgeon bell spinner sousaphones at this time.
--- NOTE | 2022-03-22 19:06 | PC.NURSE ---
SPOKE WITH [facility] REGARDING VANC DOSING 1500MG VANC NOW AND HE PLACING THE ORDER FOR ADMISSION
--- NOTE | 2022-03-22 19:07 | PC.NURSE ---
DR KUNZ SPEAKING WITH DR JEFFERSON HE IS GONNA CONSULT AFTER ADMISSION
--- NOTE | 2022-03-22 19:08 | PC.NURSE ---
s/w Dr. Munguia regarding pt. Dr. Munguia would like medicine to admit and him be added for a consult.
--- NOTE | 2022-03-22 19:26 | PC.NURSE ---
Dr. Munguia paged
--- NOTE | 2022-03-22 19:27 | PC.NURSE ---
speaking with Dr. Munguia at this time.
[2022-03-22 20:40] LABS: Reflex Lactic Add Lactic Reflex
--- NOTE | 2022-03-22 21:04 | PC.NURSE ---
Report called to NEELIMA Cabral.
--- NOTE | 2022-03-22 21:19 | PC.NURSE ---
PT ARRIVED TO FLOOR VIA W/C @ [id number]
[2022-03-22 21:29] LABS: Lactic Acid Follow Up (RFLX 1) 2.5 mmol/L (0.7-2.1)
--- NOTE | 2022-03-22 21:52 | HMH.HP ---
*Admission Date: 03/22/22 *Chief complaint: abd pain *History of present illness: this patient presented to the ed w/ a two hour h/o abdominal pain. She is 1 week s/p cholecsytectomy. She denies fever. Pain is severe and without exacerbating or alleviating factors. pt was found to have sepsis and was admitted with ivf and abx - pt with abn ct and also has uti with severe sepsis with acute organ failure [facility] History I have reviewed the patient's past medical history: Yes Medical History: Reports:: Asthma, Cancer, Depression, Diabetes Mellitus Type 2, Hyperlipidemia, Hypertension Denies:: Diabetes Mellitus Type 1, Internal Pacemaker, MRSA, Seizures *Have you ever received a pneumonia vaccine?: No *Have you received a flu vaccine this season?: No Other Medical History: Denies: Blood Transfusion Reaction Other Surgeries: Yes: Cancer Surgery, Cholecystectomy, , Thyroidectomy, Tubal Ligation. No: Pacemaker Amputation: No Fractures: No - *Social History Smoking Status: Current every day smoker Tobacco Type: cigarettes # Packs/Day (cigarettes): 1 Alcohol Intake: never Alcohol Intake Frequency:: holidays/special occasions only Substance Use Type: denies use *Occupational Status:: unemployed Housing: house Household Members: spouse, family *Travel in the last 8 weeks: None - Psychiatric History Pschychiatric History:: Reports:: Depression Family Hx:: No significant family history Review of Systems - Review of Systems Review of systems:: pertinent systems reviewed and negative unless documented below - Constitutional Reports weakness, Denies fever(s) - Eyes Denies change in vision - ENT Denies sore throat - *Cardiovascular Denies chest pain - *Respiratory Denies cough - *Gastrointestinal Reports abdominal pain, Reports nausea, Reports vomiting - *Genitourinary Denies blood in urine - *Musculoskeletal Denies joint pain - Integumentary/Breasts Denies rash - *Neurologic Denies localized weakness - Psychiatric Denies behavioral changes Meds Home Medications Medication Instructions Recorded Confirmed Type albuterol sulfate 90 mcg/actuation 2 puff IH QID PRN #8.5 g 06/02/21 03/22/22 Rx aerosol inhaler glipizide 10 mg tablet, extended 10 mg PO DAILY #90 tab 12/03/21 03/22/22 Rx release 24 hr lisinopril 10 mg tablet 10 mg PO DAILY #90 tab 12/03/21 03/22/22 Rx Atorvastatin Calcium [Lipitor 40mg 40 mg PO HS 01/19/22 03/22/22 History Tab] Levothyroxine Sodium [Synthroid] 200 mcg PO DAILY 01/19/22 03/22/22 History Semaglutide [Ozempic] 0.5 mg SQ WEEKLY 01/19/22 03/22/22 History Sitagliptin Phosphate [Januvia] 100 mg PO DAILY 01/19/22 03/22/22 History metformin 1,000 mg tablet 1,000 mg PO BID #180 tab 02/19/22 03/22/22 Rx Venlafaxine HCl [Effexor Xr] 75 mg PO DAILY 03/05/22 03/22/22 History Allergies Allergy/AdvReac Type Severity Reaction Status Date / Time No Known Allergies Allergy Verified 03/18/22 10:16 Exam Vital signs and Labs for Last 24 Hours: Temp Pulse Resp BP Pulse Ox 98.9 F 109 H 22 127/80 98 03/22/22 20:53 03/22/22 20:53 03/22/22 20:53 03/22/22 20:53 03/22/22 20:53 Laboratory Results - last 24 hr 03/22/22 16:25: Urine Color Yellow, Urine Appearance Clear, Urine pH 6.0, Ur Specific [place] 1.025, Urine Protein 3+, Urine Glucose (UA) Trace, Urine Ketones 1+, Urine Blood 3+, Urine Nitrate Positive, Urine Bilirubin 2+ A, Urine Urobilinogen 1.0, Ur Leukocyte Esterase 2+ A, Urine RBC 10-20, Urine WBC 10-20, Ur Squamous Epith Cells 5-10, Urine Bacteria 2+ 03/22/22 16:45: WBC 29.5 H*, RBC 4.53, Hgb 14.1, Hct 41.4, MCV 91.3, MCH 31.2, MCHC 34.2, RDW 13.0, Plt Count 520 H, MPV 8.7, Neut % (Auto) 80.3 H, Lymph % (Auto) 13.3, [place] % (Auto) 4.6, Eos % (Auto) 1.1, Baso % (Auto) 0.7, Neut # (Auto) 23.7 H, Lymph # (Auto) 3.9, [place] # (Auto) 1.4 H, Eos # (Auto) 0.3, Baso # (Auto) 0.2, Total Counted 100, Neutrophils % (Manual) 69, Lymphocytes % (Manual) 23, [place]
[2022-03-22 23:10] LABS: Reflex Lactic (2 hrs) Add Lactic Reflex
[2022-03-22 23:44] LABS: Lactic Acid Follow up (RFLX 2) 1.9 mmol/L (0.7-2.1)
[2022-03-23 04:00] VITALS: BP 103/58; PULSE 99; RESP 16; TEMP 36.7; O2SAT 96; BMI 33.2
--- NOTE | 2022-03-23 04:51 | PC.NURSE ---
Called [facility] and spoke to Khushbu Vasquez regarding vanc dosing consult. Per pharmacist go ahead and give 1 gram vanco dose this AM at 0600 as scheduled. Pharmacist will leave a note for our in house pharmacy to look at order and make further adjustments as needed.
[2022-03-23 06:45] LABS: Basophils # 0.1 K/mm3 (0-0.2); Basophils % 0.5 % (0.1-2.0); Lymphocytes # 3.8 K/mm3 (0.7-4.5)
[2022-03-23 06:51] LABS: Alanine Aminotransferase 21 U/L (12-78); Albumin Level 3.1 g/dl (3.5-5.0); Albumin/Globulin Ratio 1.2 (1.1-1.8); Alkaline Phosphatase 72 U/L (38-126); Anion Gap 11.5 mEq/L (5-15); Aspartate Amino Transferase 17 U/L (14-36); Blood Urea Nitrogen 5 mg/dl (7-17); Calcium 7.3 mg/dl (8.4-10.2); Carbon Dioxide 24 mmol/L (22.0-30.0); Chloride 106 mmol/L (98-107); Creatinine Clearance Estimated 256 mL/min (50-200); Estimated Glomerular Filt Rate 173 ml/min (>60); GFR (African American) 210 ML/MIN (>60); Globulin 2.6 g/dL (1.3-3.2); Glucose 92 mg/dl (74-100); Lipase 75 U/L (23-300); Potassium 3.5 mmoL/L (3.5-5.1); Sodium 138 mmol/L (136-145); Total Protein,Serum 5.7 g/dl (6.3-8.2)
[2022-03-23 06:52] LABS: Eosinophils # 0.3 K/mm3 (0.0-0.4); Eosinophils % 1.4 % (0.1-12.0); Hematocrit 30.9 % (37.0-47.0); Lymphocytes % 21.5 % (10-50); Mean Corpuscular HGB Conc 34.6 g/dL (31.8-35.4); Mean Corpuscular Hemoglobin 31.8 pg (27.0-31.2); Mean Corpuscular Volume 91.9 fl (81-99); Mean Platelet Volume 8.7 fl (7.4-10.4); Monocytes % 5.4 % (1.7-9.3); Neutrophils # 12.5 K/mm3 (1.8-7.8); Neutrophils % 71.2 % (37.0-80.0); Platelet Count 366 K/mm3 (142-424); Red Blood Count 3.36 M/mm3 (4.20-5.40); Red Cell Distribution Width 13.1 % (11.5-17.5); White Blood Count 17.6 K/mm3 (4.8-10.8)
[2022-03-23 06:53] LABS: Hemoglobin 10.7 g/dL (12.2-16.2); MANUAL DIFFERENTIAL MANUAL DIFFERENTIAL (MANUAL DIFF)
[2022-03-23 06:54] LABS: Bilirubin,Total < 0.1 mg/dl (0.2-1.3)
[2022-03-23 07:14] LABS: POC Glucose,Bedside 94 (70-110)
[2022-03-23 07:14] LABS: Lymphocytes % 22 % (10-50); Monocytes % 7 % (2-9); Neutrophils % 71 % (42-76); Total Cells Counted 100
[2022-03-23 07:15] LABS: Anisocytosis 1+; Hypochromasia 1+; Ovalocytes 1+; Platelet Estimate Normal; RBC Morphology KNP
--- NOTE | 2022-03-23 07:19 | HMH.PHAVTE ---
[facility] Pharmacy VTE Monitoring - Patient Demographics Admission date: 03/23/22 Report Date: 03/23/22 Time: 07:19 Allergies/Adverse Reactions: Patient Allergies No Known Allergies Allergy (Verified 03/18/22 10:16) Height: 1.65 m Weight: 90.52 kg Patient Problems: Current Active Problems (Last Updated 09/12/20 @ 08:52 by DK Rivas) Urinary tract infection (Acute) Severe sepsis with acute organ dysfunction (Acute) Hypothyroidism (acquired) (Acute) Obesity (BMI 30-39.9) (Acute) Tobacco use (Acute) Diabetes (Chronic) - VTE Risk Labs: VTE Related Lab Results Hgb 10.7 g/dL (12.2-16.2) L D 03/23/22 06:00 Hct 30.9 % (37.0-47.0) L 03/23/22 06:00 Plt Count 366 K/mm3 (142-424) D 03/23/22 06:00 BUN 5 mg/dl (7-17) L 03/23/22 06:00 Creatinine 0.40 mg/dl (0.52-1.04) L D 03/23/22 06:00 Estimated Creat Clear 256 mL/min (50-200) 03/23/22 06:00 Was VTE Risk Assessment Performed: Yes VTE Score: 8 VTE Risk Level: Moderate Risk Clinical Trial Participant: No - Prophylaxis VTE Prophylaxis Ordered?: Yes Types of VTE Prophylaxis: TEDS Knee High
--- NOTE | 2022-03-23 07:23 | HMH.PHAINT ---
home medication list verified using list from outpatient pharmacy
[2022-03-23 08:00] VITALS: BP 113/71; PULSE 98; RESP 16; TEMP 36.8; O2SAT 97
--- NOTE | 2022-03-23 08:25 | PC.NURSE ---
LATE ENTRY - PT NEW ADMISSION DURING MY SHIFT. PT HAS A SURGICAL DRAIN PRESENT ON ADMISSION FROM A LAP FABIO THAT WAS PERFORMED A WEEK AGO (PER PT REPORT), OTHER LAP SITES INTACT. BS ACTIVE X 4. ABD LARGE, SOFT, TENDER. PT HAS C/O OF LOWER ABD PAIN AND NAUSEA THIS SHIFT. MEDICATED PER MAR WITH FAVORABLE RESULTS. IV FLUIDS INFUSING PER ORDER. NO OTHER NEEDS VOICED. CALL [facility] IN RE[facility].
--- NOTE | 2022-03-23 08:58 | HMH.GSCON ---
*Admission Date: 03/23/22 *Reason for consult:: Abdominal pain status post laparoscopic cholecystectomy *History of present illness: This is a 46-year-old female who presented to the emergency department with increasing abdominal pain. Evaluation revealed leukocytosis. She was diagnosed with likely sepsis and the surgical service was consulted. She is status post laparoscopic cholecystectomy on March 13. Surgery was complicated secondary to severe inflammatory response and tissue thickening. Sixto-Martinez drains were placed. One drain has since been removed in the office. No jaundice. No fevers. Review of Systems - Constitutional Denies chills - Eyes Denies change in vision - *Cardiovascular Denies chest pain - *Respiratory Denies cough - *Gastrointestinal Reports abdominal pain - *Neurologic Reports weakness, Denies behavioral changes, Denies localized weakness [facility] History Medical History: Reports:: Asthma, Cancer (thyroid), Depression, Diabetes Mellitus Type 2, Hyperlipidemia, Hypertension Denies:: Diabetes Mellitus Type 1, Internal Pacemaker, MRSA, Seizures *Have you ever received a pneumonia vaccine?: No *Have you received a flu vaccine this season?: No Other Medical History: Reports: Anemia, Radiation Therapy ([id number]). Denies: Blood Transfusion Reaction Other Surgeries: Yes: Cancer Surgery, Cholecystectomy, , Dilation and Curettage, Thyroidectomy, Tubal Ligation. No: Pacemaker Amputation: No Fractures: No - *Social History Last grade of school completed: Some college Smoking Status: Current every day smoker Tobacco Type: cigarettes # Packs/Day (cigarettes): 1 Alcohol Intake: current Alcohol Intake Frequency:: holidays/special occasions only Substance Use Type: denies use *Occupational Status:: employed Housing: other Household Members: spouse, children *Travel in the last 8 weeks: None - Psychiatric History Pschychiatric History:: Reports:: Depression Family Hx:: Heart Attack Meds Home Medications Medication Instructions Recorded Confirmed Type albuterol sulfate 90 mcg/actuation 2 puff IH QID PRN #8.5 g 06/02/21 03/22/22 Rx aerosol inhaler glipizide 10 mg tablet, extended 10 mg PO DAILY #90 tab 12/03/21 03/22/22 Rx release 24 hr lisinopril 10 mg tablet 10 mg PO DAILY #90 tab 12/03/21 03/22/22 Rx Atorvastatin Calcium [Lipitor 40mg 40 mg PO HS 01/19/22 03/22/22 History Tab] Levothyroxine Sodium [Synthroid] 200 mcg PO DAILY 01/19/22 03/22/22 History Semaglutide [Ozempic] 0.5 mg SQ WEEKLY 01/19/22 03/22/22 History Sitagliptin Phosphate [Januvia] 100 mg PO DAILY 01/19/22 03/22/22 History metformin 1,000 mg tablet 1,000 mg PO BID #180 tab 02/19/22 03/22/22 Rx Venlafaxine HCl [Effexor Xr] 75 mg PO DAILY 03/05/22 03/22/22 History Allergies Allergy/AdvReac Type Severity Reaction Status Date / Time No Known Allergies Allergy Verified 03/18/22 10:16 Exam Vital signs and Labs for Last 24 Hours: Temp Pulse Resp BP Pulse Ox 98.1 F 99 H 16 103/58 L 96 03/23/22 04:00 03/23/22 04:00 03/23/22 04:00 03/23/22 04:00 03/23/22 04:00 Laboratory Results - last 24 hr 03/22/22 16:25: Urine Color Yellow, Urine Appearance Clear, Urine pH 6.0, Ur Specific [place] 1.025, Urine Protein 3+, Urine Glucose (UA) Trace, Urine Ketones 1+, Urine Blood 3+, Urine Nitrate Positive, Urine Bilirubin 2+ A, Urine Urobilinogen 1.0, Ur Leukocyte Esterase 2+ A, Urine RBC 10-20, Urine WBC 10-20, Ur Squamous Epith Cells 5-10, Urine Bacteria 2+ 03/22/22 16:45: WBC 29.5 H*, RBC 4.53, Hgb 14.1, Hct 41.4, MCV 91.3, MCH 31.2, MCHC 34.2, RDW 13.0, Plt Count 520 H, MPV 8.7, Neut % (Auto) 80.3 H, Lymph % (Auto) 13.3, [place] % (Auto) 4.6, Eos % (Auto) 1.1, Baso % (Auto) 0.7, Neut # (Auto) 23.7 H, Lymph # (Auto) 3.9, [place] # (Auto) 1.4 H, Eos # (Auto) 0.3, Baso # (Auto) 0.2, Total Counted 100, Neutrophils % (Manual) 69, Lymphocytes % (Manual) 23, Monocytes % (Manual) 6, Eosinophils % (Manual) 2, Platelet Est
--- NOTE | 2022-03-23 11:29 | PC.NURSE ---
order to advance diet as tolerated. patient tolerated clears well, and stated she had ate some chips after md rounded. stated she felt that she could tolerate normal food so order placed for diabetic diet.
--- NOTE | 2022-03-23 13:02 | HMH.ACPN2 ---
Internal Medicine - PN: Subj *Date: 03/24/22 *Time: 06:23 Interval history: doing better - surg note reviewed - has uti Exam Vital signs and Labs for Last 24 Hours: Temp Pulse Resp BP Pulse Ox 98.2 F 98 H 16 113/71 97 03/23/22 08:00 03/23/22 08:00 03/23/22 08:00 03/23/22 08:00 03/23/22 08:00 Laboratory Results - last 24 hr 03/22/22 16:25: Urine Color Yellow, Urine Appearance Clear, Urine pH 6.0, Ur Specific [place] 1.025, Urine Protein 3+, Urine Glucose (UA) Trace, Urine Ketones 1+, Urine Blood 3+, Urine Nitrate Positive, Urine Bilirubin 2+ A, Urine Urobilinogen 1.0, Ur Leukocyte Esterase 2+ A, Urine RBC 10-20, Urine WBC 10-20, Ur Squamous Epith Cells 5-10, Urine Bacteria 2+ 03/22/22 16:45: WBC 29.5 H*, RBC 4.53, Hgb 14.1, Hct 41.4, MCV 91.3, MCH 31.2, MCHC 34.2, RDW 13.0, Plt Count 520 H, MPV 8.7, Neut % (Auto) 80.3 H, Lymph % (Auto) 13.3, [place] % (Auto) 4.6, Eos % (Auto) 1.1, Baso % (Auto) 0.7, Neut # (Auto) 23.7 H, Lymph # (Auto) 3.9, [place] # (Auto) 1.4 H, Eos # (Auto) 0.3, Baso # (Auto) 0.2, Total Counted 100, Neutrophils % (Manual) 69, Lymphocytes % (Manual) 23, Monocytes % (Manual) 6, Eosinophils % (Manual) 2, Platelet Estimate Marked increase 03/22/22 16:45: Sodium 138, Potassium 3.8, Chloride 101, Carbon Dioxide 23, Anion Gap 17.8 H, BUN 5 L, Creatinine 0.60, Estimated Creat Clear 171, Estimated GFR 109, Est GFR ( Amer) 131, Glucose 208 H, Calcium 9.0, Total Bilirubin 0.5, AST 31, ALT 35, Alkaline Phosphatase 114, Total Protein 7.7, Albumin 4.3, Globulin 3.4 H, Albumin/Globulin Ratio 1.3 03/22/22 16:45: Serum HCG, Qual Negative 03/22/22 16:45: Lactate 3.8 H 03/22/22 17:25: SARS-CoV-2 (PCR) Not detected, Influenza A Untype (PCR) Not detected, Influenza Type B (PCR) Not detected 03/22/22 21:15: Lactate 2.5 H 03/22/22 23:30: Lactate 1.9 03/23/22 06:00: WBC 17.6 H D, RBC 3.36 L D, Hgb 10.7 L D, Hct 30.9 L, MCV 91.9, MCH 31.8 H, MCHC 34.6, RDW 13.1, Plt Count 366 D, MPV 8.7, Neut % (Auto) 71.2, Lymph % (Auto) 21.5, [place] % (Auto) 5.4, Eos % (Auto) 1.4, Baso % (Auto) 0.5, Neut # (Auto) 12.5 H, Lymph # (Auto) 3.8, [place] # (Auto) 1.0, Eos # (Auto) 0.3, Baso # (Auto) 0.1, Total Counted 100, Neutrophils % (Manual) 71, Lymphocytes % (Manual) 22, Monocytes % (Manual) 7, Platelet Estimate Normal, RBC Morphology Knp, Hypochromasia 1+, Anisocytosis 1+, Ovalocytes 1+ 03/23/22 06:00: Sodium 138, Potassium 3.5, Chloride 106, Carbon Dioxide 24, Anion Gap 11.5, BUN 5 L, Creatinine 0.40 L D, Estimated Creat Clear 256, Estimated GFR 173, Est GFR ( Amer) 210 D, Glucose 92 D, Calcium 7.3 L, Total Bilirubin < 0.1 L, AST 17 D, ALT 21 D, Alkaline Phosphatase 72, Total Protein 5.7 L D, Albumin 3.1 L D, Globulin 2.6, Albumin/Globulin Ratio 1.2, Lipase 75 03/23/22 07:05: POC Glucose 94 I & O for Last 24 hours: Intake & Output 03/21/22 03/22/22 03/23/22 03/24/22 11:59 11:59 11:59 11:59 Intake Total 2875 / 2875 Output Total 0 / 0 Balance 2874 / 287 Weight 199 lb 9 oz Microbiology Reports for the Last 24 Hours: Microbiology 03/22/22 16:25 Urine,Clean Catch Urine Culture - Preliminary - Constitutional no acute distress, obese - *Routine HEENT Exam Head: Present: normocephalic Eye: Present: EOMI, PERRL ENT: Present: mucous membranes dry - *Routine Neck Exam Absent: JVD - *Routine Respiratory Exam Present: decreased breath sounds - *Routine Cardiovascular Exam Present: RRR, murmur - *Routine Abdominal Exam Present: soft, drain - *Routine Extremities Exam Absent: calf tenderness - *Routine Skin Exam Present: intact - *Routine Neurological Exam Present: alert, CN II-XII intact - Routine Psychiatric Exam Present: normal affect Assessment and Plan (1) Severe sepsis with acute organ dysfunction Status: Acute Category: Medical Code(s): A41.9 - Sepsis, unspecified organism; R65.20 - Severe sepsis without septic shock (2) Urinary tract infection Status: Acute Qualifie
[2022-03-23 14:14] VITALS: BMI 33.2
[2022-03-23 16:00] VITALS: BP 119/69; PULSE 101; RESP 16; TEMP 37.3; O2SAT 99
[2022-03-23 20:00] VITALS: BP 128/71; PULSE 110; RESP 18; TEMP 37.7; O2SAT 97
--- NOTE | 2022-03-23 20:15 | PC.NURSE ---
patient has done okay this shift. no complaints of pain noted. rings out as needed. damaris drain continues to drain. dressing/steri strips clean on abdomen. eager to go home. tolerating diet well.
[2022-03-24 04:00] VITALS: BP 122/73; PULSE 105; RESP 18; TEMP 37.2; O2SAT 98
--- NOTE | 2022-03-24 04:30 | PC.NURSE ---
PT HAS RESTED WELL THIS SHIFT. SHE HAS BEEN UP AND AMBULATING IN ROOM SEVERAL TIMES. LUNG SOUNDS ARE CLEAR BILATERALLY AND IS TOLERATING ROOM AIR WELL. NO C/O N/V/D. BOWEL SOUNDS ARE ACTIVE IN AL QUADRANTS. ABD IS SOFT AND NON-TENDER. SURGICAL INCISIONS ARE C/D/I. LISA DRAIN IS IN PLACE AND DRAINING SEROUS FLUID. PT CHANGED BANDAGE ON SITE WHERE SECOND LISA DRAIN WAS REMOVED AND HAD A SCANT AMOUNT OF GREEN DRAINAGE ON THE BANDAGE BUT NO OTHER SYMPTOMS. PT DID C/O URINATING FREQUENTLY AND BURNING ON URINATION. PT HAS NO OTHER COMPLAINTS OR CONCERNS SO FAR THIS SHIFT. VSS.
[2022-03-24 04:57] VITALS: BMI 33.7
[2022-03-24 05:57] LABS: POC Glucose,Bedside 146 (70-110)
--- NOTE | 2022-03-24 06:49 | PC.NURSE ---
LISA DRAIN PULLED PER DR. JEFFERSON AT THIS TIME.
--- NOTE | 2022-03-24 07:11 | HMH.GSPN ---
Subjective Patient reports: no new complaints, feels better Progress Note: A&P (1) Severe sepsis with acute organ dysfunction Status: Acute Assessment and plan: Likely secondary to urinary tract infection (2) Urinary tract infection Status: Acute (3) Acute cholecystitis due to biliary calculus Status: Acute Assessment and plan: Overall, doing fairly well status post laparoscopic cholecystectomy. Impacted infundibular stone is likely the causative factor with regard to her most recent radiographic findings. Sixto-Martinez drainage has been minimal. No sign of bilious output. Her final Sixto-Martinez drain will be removed this morning. (4) Hypothyroidism (acquired) Status: Acute (5) Obesity (BMI 30-39.9) Status: Acute (6) Tobacco use Status: Acute Exam Vital signs and Labs for Last 24 Hours: Temp Pulse Resp BP Pulse Ox 98.9 F 105 H 18 122/73 98 03/24/22 04:00 03/24/22 04:00 03/24/22 04:00 03/24/22 04:00 03/24/22 04:00 Laboratory Results - last 24 hr 03/23/22 06:00: Total Counted 100, Neutrophils % (Manual) 71, Lymphocytes % (Manual) 22, Monocytes % (Manual) 7, Platelet Estimate Normal, RBC Morphology Knp, Hypochromasia 1+, Anisocytosis 1+, Ovalocytes 1+ 03/23/22 07:05: POC Glucose 94 03/24/22 05:46: POC Glucose 146 H I & O for Last 24 hours: Intake & Output 03/21/22 03/22/22 03/23/22 03/24/22 11:59 11:59 11:59 11:59 Intake Total 2875 / 2875 2114 Output Total 0 / 0 Balance 2875 / 2875 2114 Weight 199 lb 9 oz 202 lb 11.2 oz Microbiology Reports for the Last 24 Hours: Microbiology 03/22/22 16:25 Urine,Clean Catch Urine Culture - Preliminary - Constitutional no acute distress - *Routine Respiratory Exam Absent: respiratory distress - *Routine Cardiovascular Exam Comments: Mildly tachycardic - *Routine Abdominal Exam Comments: Small amount of serous drainage from Sixto-Martinez drain
[2022-03-24 07:36] LABS: Basophils # 0.1 K/mm3 (0-0.2); Basophils % 0.7 % (0.1-2.0); Eosinophils # 0.2 K/mm3 (0.0-0.4); Eosinophils % 2.3 % (0.1-12.0); Hematocrit 31.7 % (37.0-47.0); Hemoglobin 10.9 g/dL (12.2-16.2); Lymphocytes # 3.3 K/mm3 (0.7-4.5); Mean Corpuscular HGB Conc 34.4 g/dL (31.8-35.4); Mean Corpuscular Hemoglobin 31.9 pg (27.0-31.2); Mean Corpuscular Volume 92.5 fl (81-99); Mean Platelet Volume 8.8 fl (7.4-10.4); Monocytes # 0.6 K/mm3 (0.1-1.0); Monocytes % 6.6 % (1.7-9.3); Neutrophils # 5.2 K/mm3 (1.8-7.8); Neutrophils % 55.4 % (37.0-80.0); Platelet Count 359 K/mm3 (142-424); Red Blood Count 3.42 M/mm3 (4.20-5.40); Red Cell Distribution Width 13.2 % (11.5-17.5); White Blood Count 9.4 K/mm3 (4.8-10.8)
[2022-03-24 07:42] VITALS: BP 121/77; PULSE 73; RESP 20; TEMP 37.2; O2SAT 98
[2022-03-24 07:46] LABS: Anion Gap 11.5 mEq/L (5-15); Blood Urea Nitrogen 3 mg/dl (7-17); Calcium 6.8 mg/dl (8.4-10.2); Carbon Dioxide 25 mmol/L (22.0-30.0); Chloride 107 mmol/L (98-107); Creatinine Clearance Estimated 261 mL/min (50-200); Estimated Glomerular Filt Rate 173 ml/min (>60); GFR (African American) 210 ML/MIN (>60); Glucose 152 mg/dl (74-100); Potassium 3.5 mmoL/L (3.5-5.1); Sodium 140 mmol/L (136-145)
--- NOTE | 2022-03-24 14:30 | HMH.DCSUM ---
General - General Admission date:: 03/22/22 Discharge date: 03/24/22 HPI HPI: this patient presented to the ed w/ a two hour h/o abdominal pain. She is 1 week s/p cholecsytectomy. She denies fever. Pain is severe and without exacerbating or alleviating factors. pt was found to have sepsis and was admitted with ivf and abx - pt with abn ct and also has uti with severe sepsis with acute organ failure Hospital Course Hospital Course: pt was admitted for ivf and abx and slowly improved with abx and has gram neg organism - pt with improved activity and guadalupe diet and labs improved - urine final culture results pending - pt was seen by surg also- a 46-year-old female who presented to the emergency department with increasing abdominal pain. Evaluation revealed leukocytosis. She was diagnosed with likely sepsis and the surgical service was consulted. She is status post laparoscopic cholecystectomy on March 13. Surgery was complicated secondary to severe inflammatory response and tissue thickening. Sixto-Martinez drains were placed. One drain has since been removed in the office. No jaundice. No fevers. it was felt that majority of sx were related to uti with sepsis - pt will be d/c to see pcp and surg as op Objective Vital signs: Temp Pulse Resp BP Pulse Ox 99.0 F 73 20 121/77 98 03/24/22 07:42 03/24/22 07:42 03/24/22 07:42 03/24/22 07:42 03/24/22 07:42 no acute distress - *Routine HEENT Exam Head: Present: normocephalic Eye: Present: EOMI, PERRL ENT: Present: mucous membranes moist - *Routine Neck Exam Absent: JVD - *Routine Respiratory Exam Present: CTA bilaterally - *Routine Cardiovascular Exam Present: RRR - *Routine Abdominal Exam Present: soft, surgical scars - *Routine Extremities Exam Absent: calf tenderness - *Routine Skin Exam Present: intact - *Routine Neurological Exam Present: alert, CN II-XII intact - Routine Psychiatric Exam Present: cooperative Results Labs on day of discharge: Labs from last 24 hours 03/24/22 03/24/22 03/24/22 07:24 07:24 05:46 WBC 9.4 D RBC 3.42 L Hgb 10.9 L Hct 31.7 L MCV 92.5 MCH 31.9 H MCHC 34.4 RDW 13.2 Plt Count 359 MPV 8.8 Neut % (Auto) 55.4 Lymph % (Auto) 35.0 Holmes % (Auto) 6.6 Eos % (Auto) 2.3 Baso % (Auto) 0.7 Neut # (Auto) 5.2 Lymph # (Auto) 3.3 Holmes # (Auto) 0.6 Eos # (Auto) 0.2 Baso # (Auto) 0.1 Sodium 140 Potassium 3.5 Chloride 107 Carbon Dioxide 25 Anion Gap 11.5 BUN 3 L D Creatinine 0.40 L Estimated Creat Clear 261 Estimated GFR 173 Est GFR ( Amer) 210 Glucose 152 H POC Glucose 146 H Calcium 6.8 L Urine Color Urine Appearance Urine pH Ur Specific [place] Urine Protein Urine Glucose (UA) Urine Ketones Urine Blood Urine Nitrate Urine Bilirubin Urine Urobilinogen Ur Leukocyte Esterase Urine RBC Urine WBC Ur Squamous Epith Cells Urine Bacteria 03/22/22 16:25 WBC RBC Hgb Hct MCV MCH MCHC RDW Plt Count MPV Neut % (Auto) Lymph % (Auto) Holmes % (Auto) Eos % (Auto) Baso % (Auto) Neut # (Auto) Lymph # (Auto) Holmes # (Auto) Eos # (Auto) Baso # (Auto) Sodium Potassium Chloride Carbon Dioxide Anion Gap BUN Creatinine Estimated Creat Clear Estimated GFR Est GFR ( Amer) Glucose POC Glucose Calcium Urine Color Yellow Urine Appearance Clear Urine pH 6.0 Ur Specific [place] 1.025 Urine Protein 3+ Urine Glucose (UA) Trace Urine Ketones 1+ Urine Blood 3+ Urine Nitrate Positive Urine Bilirubin 2+ A Urine Urobilinogen 1.0 Ur Leukocyte Esterase 2+ A Urine RBC 10-20 Urine WBC 10-20 Ur Squamous Epith Cells 5-10 Urine Bacteria 2+ Preliminary micro results at discharge 03/22/22 16:25 Urine Culture - Preliminary Urine,Clean Catch Gram Negative Rods Gram Ne
--- NOTE | 2022-03-24 15:23 | PC.NURSE ---
patient has done well this shift. no complaints, tolerating diet and walking halls. notified md per his request and dc order obtained.
[2022-03-25 12:29] LABS: POC Glucose,Bedside 183 (70-110)
[2022-03-25 12:29] LABS: POC Glucose,Bedside 192 (70-110)
[2022-03-25 12:29] LABS: POC Glucose,Bedside 190 (70-110)
--- NOTE | 2022-03-25 13:53 | CARE MANAGER ---
Contacted patient related to hospital discharge. 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 Denies any questions or concerns at t his time. NEELIMA Singleton
== END 2022-03-24 16:38 | disposition home or self-care (01) | DRG 872 ==
LOC: ER 20:11 → 2ND 20:54
PROVIDERS: Admitting Provider Emergency Medicine; Emergency Provider Emergency Medicine; PCP Physician Assistant; Visit Provider Emergency Medicine
DX: A41.9 Sepsis, unspecified organism (principal); N39.0 Urinary tract infection, site not specified; R65.20 Severe sepsis without septic shock; E03.9 Hypothyroidism, unspecified; E66.9 Obesity, unspecified; Z68.30 Body mass index [BMI] 30.0-30.9, adult; E78.5 Hyperlipidemia, unspecified; I10 Essential (primary) hypertension; Z85.850 Personal history of malignant neoplasm of thyroid; F17.210 Nicotine dependence, cigarettes, uncomplicated
CPT/HCPCS: 36415; 74177; 80048; 80053; 81001; 82962; 83605; 83690; 84703; 85007; 85025; 87040; 87086; 87088; 87186; 99285; C9803; J0696; J2405; J2543; J3370; Q9967; U0003; U0005

== ENCOUNTER → 2022-03-27 09:06 | Outpatient (CLI) | payer MEDICAID, SELFPAY ==
--- NOTE | 2022-03-27 09:07 | MR_ITS ---
FINAL REPORT CLINICAL HISTORY: RIGHT SHOULDER PAIN, LIMITED ROM FINDINGS: Multiplanar MR imaging of the right shoulder was performed after the intra-articular injection of dilute gadolinium solution. The tendons of the rotator cuff are intact without evidence of rotator cuff tear. There is no evidence of contrast leakage from the glenohumeral joint to the subacromial/subdeltoid bursa. There is mild AC joint arthrosis. There is contrast at the base of the superior labrum consistent with a SLAP tear. The long head of the biceps tendon is intact. There is no evidence of fracture. The musculature is intact. No soft tissue mass or cyst is identified. IMPRESSION: Findings consistent with a SLAP tear. Reviewed, Interpreted and Dictated by Robin Hodges III, MD Transcribed by Sara Falcon Authenticated and [facility]
--- NOTE | 2022-03-27 09:08 | IR_ITS ---
FINAL REPORT CLINICAL HISTORY: RIGHT SHOULDER PAIN Fluoro time 1:12 FINDINGS: RIGHT SHOULDER INJECTION FOR MRI ARTHROGRAM HISTORY: . Right shoulder pain Attending radiologist: Dr. Hodges Physician Roof Bolter: Chuy Bingham PA-C PROCEDURE: After informed consent was obtained, a time-out was performed. Utilizing local anesthesia and sterile technique, with direct fluoroscopic guidance, access to the joint was obtained . A small amount of contrast was injected to confirm needle tip location. Additional gadolinium contrast was injected. IMPRESSION: Status post injection for MRI arthrogram without immediate complication. Please see MRI report. FLUOROSCOPY TIME: 1 minute 12 seconds. 3 radiographs were obtained. Films reviewed , interpreted and dictated by Dr. Hodges. Transcribed by Chuy Bingham PA-C. Reviewed, Interpreted and Dictated by Robin Hodges III, MD Transcribed by DK Walsh Authenticated and [facility]
== END ==
PROVIDERS: PCP Physician Assistant; Visit Provider Orthopaedic Surgery
DX: M25.511 Pain in right shoulder (principal)
CPT/HCPCS: 73040; 73222; A9576; Q9967

== ENCOUNTER → 2022-09-30 12:54 | Outpatient (CLI) | payer MEDICAID, SELFPAY ==
--- NOTE | 2022-09-30 12:58 | MR_ITS ---
FINAL REPORT TECHNIQUE: Multiplanar MR without contrast CLINICAL HISTORY: RIGHT SHOULDER PAIN, LIMITED ROM, RECENT SURGERY MAY 2022 COMPARISON: 03/27/2022 FINDINGS: Marrow signal: [place] screw causing artifact in the anterior humeral head. No evidence of marrow edema or contusion. Glenohumeral joint: Small effusion. No significant degenerative changes. AC joint: Mild arthropathy without impingement. Trace fluid in the subacromial bursa. Rotator cuff: High-grade partial thickness tear of the distal supraspinatus tendon, new since prior. The infraspinatus and subscapularis tendons are intact. Labrum: Interval postoperative changes of the anterior and superior labrum compatible with repair. Diffuse abnormal signal changes in the superior labrum, likely reflect postoperative change without definite recurrent tear. Biceps tendon: Surgical repair of long head of the biceps tendon now anchored proximally within the humeral head. IMPRESSION: Interval surgical repair of the labrum without obvious recurrent tear. Interval development of high-grade partial tear of the supraspinatus tendon. Interval surgical repair of the biceps tendon. Reviewed, Interpreted and Dictated by Mo Arrington MD Transcribed by Sara Falcon Authenticated and [facility]
== END ==
PROVIDERS: PCP Physician Assistant; Visit Provider Orthopaedic Surgery
DX: M25.511 Pain in right shoulder (principal)
CPT/HCPCS: 73221

== ENCOUNTER 2022-09-30 14:30 | Outpatient (RCR) | payer MEDICAID, SELFPAY | END 2022-09-30 14:35 | disposition home or self-care (01) | LOC: PT 14:30 | PROVIDERS: PCP Physician Assistant; Visit Provider Physician Assistant | DX: M75.21 Bicipital tendinitis, right shoulder (principal) | CPT/HCPCS: 97010; 97014; 97016; 97110; 97140; 97163; 97164; G0283 ==

== ENCOUNTER 2023-04-08 21:17 | Emergency (ER) | payer MEDICAID, SELFPAY ==
[2023-04-08 21:18] VITALS: BP 138/74; PULSE 100; RESP 16; TEMP 36.8; O2SAT 98; BMI 32.3
[2023-04-08 21:31] VITALS: BP 134/81; PULSE 116; O2SAT 96
--- NOTE | 2023-04-08 21:38 | XR_ITS ---
PROCEDURE INFORMATION: Exam: XR Chest Exam date and time: 04/08/2023 9:43 PM Age: 47 years old Clinical indication: Shortness of breath; Additional info: SOA TECHNIQUE: Imaging protocol: Radiologic exam of the chest. Views: 2 views. Total images: 2 COMPARISON: CR XR CHEST 2V 05/18/2021 11:27 PM FINDINGS: Lungs: Unremarkable. No consolidation. No pulmonary vascular congestion or edema. Pleural spaces: Unremarkable. No pleural effusion. No pneumothorax. Heart/Mediastinum: Unremarkable. No cardiomegaly. No mediastinal widening or hilar enlargement. Bones/joints: Unremarkable. IMPRESSION: No radiographically acute cardiopulmonary process.
--- NOTE | 2023-04-08 21:46 | ECG_ITS ---
APPROVED REPORT Exam: Resting ECG HR:109 bpm ECG Measurements Heart Rate 109 AXES HI 135 P 57 QRSd 88 QRS 52 QT 336 T 43 QTc 400 Conclusion SINUS TACHYCARDIA NONSPECIFIC T-WAVE ABNORMALITY ABNORMAL RHYTHM ECG UNCONFIRMED REPORT Electronically signed by : Pan Rocha MD 04/09/2023 17:41:14
[2023-04-08 21:47] LABS: Coronavirus 19, PCR Not Detected (NotDetected); Influenza A, PCR Not Detected (NotDetected); Influenza B, PCR Not Detected (NotDetected)
[2023-04-08 21:50] LABS: Basophils # 0.1 K/mm3 (0-0.2); Basophils % 0.8 % (0.1-2.0); Eosinophils # 0.4 K/mm3 (0.0-0.4); Eosinophils % 3.1 % (0.1-12.0); Hematocrit 45.4 % (37.0-47.0); Hemoglobin 14.6 g/dL (12.2-16.2); Lymphocytes # 4.4 K/mm3 (0.7-4.5); Lymphocytes % 38.3 % (10-50); Mean Corpuscular HGB Conc 32.1 g/dL (31.8-35.4); Mean Corpuscular Hemoglobin 29.8 pg (27.0-31.2); Mean Corpuscular Volume 92.8 fl (81-99); Mean Platelet Volume 10.3 fl (7.4-10.4); Monocytes # 0.5 K/mm3 (0.1-1.0); Monocytes % 4.7 % (1.7-9.3); Neutrophils # 6.2 K/mm3 (1.8-7.8); Neutrophils % 53.2 % (37.0-80.0); Platelet Count 306 K/mm3 (142-424); Red Blood Count 4.89 M/mm3 (4.20-5.40); Red Cell Distribution Width 12.4 % (11.5-17.5); White Blood Count 11.6 K/mm3 (4.8-10.8)
--- NOTE | 2023-04-08 21:50 | PC.NURSE ---
Pt going to CT
[2023-04-08 21:56] LABS: Alanine Aminotransferase 54 U/L (12-78); Albumin Level 4.7 g/dl (3.5-5.0); Albumin/Globulin Ratio 1.5 (1.1-1.8); Alkaline Phosphatase 81 U/L (38-126); Anion Gap 19.4 mEq/L (5-15); Aspartate Amino Transferase 76 U/L (14-36); Bilirubin,Total 0.5 mg/dl (0.2-1.3); Blood Urea Nitrogen 15 mg/dl (7-17); Calcium 9.2 mg/dl (8.4-10.2); Carbon Dioxide 25 mmol/L (22.0-30.0); Chloride 97 mmol/L (98-107); Creatinine Clearance Estimated 141 mL/min (50-200); Estimated Glomerular Filt Rate 90 ml/min (>60); GFR (African American) 109 ML/MIN (>60); Globulin 3.1 g/dL (1.3-3.2); Glucose 275 mg/dl (74-100); Lipase 248 U/L (23-300); Potassium 4.4 mmoL/L (3.5-5.1); Sodium 137 mmol/L (136-145); Total Protein,Serum 7.8 g/dl (6.3-8.2)
[2023-04-08 21:57] LABS: Lactic Acid 4.1 mmol/L (0.7-2.1)
--- NOTE | 2023-04-08 22:12 | PC.NURSE ---
Notified MD of lactic acid and glucose VO given at this time for additional labs Notified resp of VBG
[2023-04-08 22:13] LABS: Troponin I < 0.01 ng/ml (0.00-0.034)
[2023-04-08 22:15] LABS: Microscopic, Urine URINE MICROSCOPIC (MICROSCOPIC)
[2023-04-08 22:27] LABS: Acetone, Serum (Rapid) None Detected (None Detect)
[2023-04-08 22:31] LABS: VBG Base Excess -1.5 mmol/L (-2.4-2.3); VBG HCO3 22.1 mmol/L (23-30); VBG Oxygen Saturation 77.5 % (50-70); VBG PH 7.47 mmol/L (7.31-7.41); VBG PO2 37.1 mmol/L (28-40); VBG Total CO2 23.1 mmol/L (23-27)
[2023-04-08 22:51] LABS: Appearance,Urine CLEAR (Clear); Bilirubin,Urine Negative (Negative); Blood, Urine Negative (Negative); Color,Urine YELLOW (Yellow); Glucose,Urine (UA) 3+ (Negative); Ketones,Urine Negative (Negative); Leukocyte Esterase,Urine Negative (Negative); Nitrate,Urine Negative (Negative); PH,Urine 5.5 (5.0-8.5); Protein,Urine Negative (Negative); Specific Gravity, Urine 1.025 (1.005-1.030); Urobilinogen,Urine 0.2 EU/dl (0.2)
--- NOTE | 2023-04-08 22:53 | PC.NURSE ---
Rounded on pt at this time. Updated on POC. Call light within reach and no new needs at this time
[2023-04-08 23:00] VITALS: BP 104/68; PULSE 91; O2SAT 98
[2023-04-08 23:06] LABS: Bacteria,Urine Trace /lpf; WBC,Urine Occasional #/hpf (0-3)
--- NOTE | 2023-04-08 23:51 | HMH.EDGENADL ---
Discharge Plan Disposition Patient Disposition: Home, Self-Care Condition: Fair Prescriptions Prescriptions: New promethazine 25 mg tablet 25 mg PO TID PRN (Reason: nausea and vomiting) Qty: 12 0RF No Action fluconazole [Diflucan] 150 mg tablet 150 mg PO Q3D Qty: 2 0RF Rx Instructions: may repeat second dose 72 hrs after first dose if symptoms persist promethazine 12.5 mg tablet 12.5 mg PO TID Qty: 30 0RF amoxicillin-pot clavulanate 875-125 mg tablet 1 tab PO BID 10 Days Qty: 20 0RF benzonatate 200 mg capsule 200 mg PO BID PRN (Reason: cough) Qty: 20 0RF methylprednisolone 4 mg tablets,dose pack See Rx Instructions PO PER PKG DIR Qty: 21 0RF Rx Instructions: PO PER PKG DIR levothyroxine [Synthroid] 200 mcg tablet See Rx Instructions .ROUTE .COMPLEX Qty: 90 2RF Dose Instruction: Take 1 tablet by mouth once daily Rx Instructions: Take 1 tablet by mouth once daily lisinopril 10 mg tablet 10 mg PO DAILY Qty: 90 1RF atorvastatin 40 mg tablet 40 mg PO HS Qty: 90 0RF glipizide 10 mg tablet extended release 24hr See Rx Instructions .ROUTE .COMPLEX Qty: 90 0RF Dose Instruction: TAKE 1 TABLET BY MOUTH ONCE DAILY FOR DIABETES Rx Instructions: TAKE 1 TABLET BY MOUTH ONCE DAILY FOR DIABETES albuterol sulfate 90 mcg/actuation HFA aerosol inhaler 2 puff IH QID PRN (Reason: shortness of breath or wheezing) Qty: 8.5 10RF venlafaxine 75 mg capsule,extended release 24hr See Rx Instructions .ROUTE .COMPLEX Qty: 90 0RF Dose Instruction: Take 1 capsule by mouth once daily Rx Instructions: Take 1 capsule by mouth once daily Januvia 100 mg tablet See Rx Instructions .ROUTE .COMPLEX Qty: 90 0RF Dose Instruction: Take 1 tablet by mouth once daily Rx Instructions: Take 1 tablet by mouth once daily metformin 1,000 mg tablet See Rx Instructions .ROUTE .COMPLEX Qty: 180 0RF Dose Instruction: TAKE 1 TABLET BY MOUTH TWICE DAILY FOR DIABETES Rx Instructions: TAKE 1 TABLET BY MOUTH TWICE DAILY FOR DIABETES Ozempic 0.25 mg or 0.5 mg (2 mg/3 mL) pen injector See Rx Instructions .ROUTE .COMPLEX Qty: 3 0RF Dose Instruction: INJECT 0.25MG SUBCUTANEOUSLY ONCE WEEKLY FOR 4 WEEKS, THEN INCREASE TO 0.5MG ONCE WEEKLY Rx Instructions: INJECT 0.25MG SUBCUTANEOUSLY ONCE WEEKLY FOR 4 WEEKS, THEN INCREASE TO 0.5MG ONCE WEEKLY Referrals Follow up/Referrals: Sabra Gamino PA [Primary Care Provider] - See instructions Activity Restrictions/Add. Instructions Additional Instructions/Restrictions: At this time it was felt you are safe to be discharged home. If new or worsening symptoms please do not hesitate to return the emergency department. Please take your medication as prescribed. Please take 1 g of calcium carbonate for the next few days and have your calcium level rechecked early next week. It may be worthwhile to have your parathyroid hormone checked for your hypocalcemia. Clinical Impressions Clinical Impression: Nausea & vomiting, Hypocalcemia Discharge ED Provider: Lizbet Brown General Adult HPI <Lizbet Brown MD - Last Filed: 04/09/23 00:08> General Chief complaint: Nausea/Vomiting/Diarrhea Stated complaint: NVD Time Seen by Provider: 04/08/23 21:26 Mode of Arrival: Ambulatory Source of Information: Patient Limitations: No Limitations Description of Symptoms (Recalled from ER Triage Doc. by RN): Pt c/o n/v/d that started two days ago. Advises she has been unable to keep anything down. Advises she only has abd pain whene she vomits. Pt advises she is also having body aches, chills and some minor SOA. History of Present Illness HPI narrative: Patient has a PMHx significant for diabetes, thyroid cancer status post thyroidectomy now on supplemental levothyroxine who presents to the ED with complaints of nausea, vomiting, diarrhea. Patient said for the past 2 days
--- NOTE | 2023-04-09 00:30 | PC.NURSE ---
Repeat lactic and troponin drawn at this time. 2nd liter of fluids going. Pt and updated on POC and apporx how long repeat labs would take. Provided pt with ice and MD advised she could try some PO fluids also. Call light within reach and no other needs at this time.
[2023-04-09 00:41] LABS: Lactic Acid 2.4 mmol/L (0.7-2.1)
[2023-04-09 00:42] LABS: Anion Gap 12.4 mEq/L (5-15); Blood Urea Nitrogen 12 mg/dl (7-17); Calcium 6.8 mg/dl (8.4-10.2); Carbon Dioxide 19 mmol/L (22.0-30.0); Chloride 109 mmol/L (98-107); Creatinine Clearance Estimated 197 mL/min (50-200); Estimated Glomerular Filt Rate 133 ml/min (>60); GFR (African American) 161 ML/MIN (>60); Glucose 182 mg/dl (74-100); Potassium 3.4 mmoL/L (3.5-5.1); Sodium 137 mmol/L (136-145)
[2023-04-09 01:17] LABS: Troponin I < 0.01 ng/ml (0.00-0.034)
[2023-04-09 02:07] VITALS: BP 122/74; PULSE 70; RESP 16; TEMP 36.8; O2SAT 98
== END 2023-04-09 02:13 | disposition home or self-care (01) ==
PROVIDERS: Emergency Provider Emergency Medicine; PCP Physician Assistant
DX: R11.2 Nausea with vomiting, unspecified (principal); E83.51 Hypocalcemia; E11.9 Type 2 diabetes mellitus without complications; E89.0 Postprocedural hypothyroidism; R19.7 Diarrhea, unspecified; R50.9 Fever, unspecified; J45.909 Unspecified asthma, uncomplicated; F17.210 Nicotine dependence, cigarettes, uncomplicated
CPT/HCPCS: 71046; 80048; 80053; 81001; 82009; 82803; 83605; 83690; 84484; 85025; 87636; 93005; 96361; 96365; 96366; 96375; 99285; J2405

== ENCOUNTER → 2023-04-14 23:22 | Outpatient (CLI) | payer MEDICAID, SELFPAY ==
[2023-04-14 18:58] LABS: Alanine Aminotransferase 40 U/L (12-78); Albumin Level 4.2 g/dl (3.5-5.0); Albumin/Globulin Ratio 1.6 (1.1-1.8); Alkaline Phosphatase 94 U/L (38-126); Anion Gap 17.4 mEq/L (5-15); Aspartate Amino Transferase 50 U/L (14-36); Bilirubin,Total 0.3 mg/dl (0.2-1.3); Blood Urea Nitrogen 10 mg/dl (7-17); Calcium 8.9 mg/dl (8.4-10.2); Carbon Dioxide 24 mmol/L (22.0-30.0); Chloride 102 mmol/L (98-107); Chol/HDL Ratio 3.9 (1-3.5); Cholesterol 154 mg/dl (140-200); Estimated Glomerular Filt Rate 133 ml/min (>60); GFR (African American) 161 ML/MIN (>60); Globulin 2.6 g/dL (1.3-3.2); Glucose 170 mg/dl (74-100); HDL Cholesterol 40 mg/dl (40-60); Potassium 4.4 mmoL/L (3.5-5.1); Sodium 139 mmol/L (136-145); Total Protein,Serum 6.8 g/dl (6.3-8.2); Triglycerides 193 mg/dl (30-150); VLDL Cholesterol 39 mg/dL (0-40)
[2023-04-14 19:15] LABS: 25-OH Vitamin D, Total 37.6 ng/mL (30-100)
[2023-04-14 19:18] LABS: Hemoglobin A1C 8.9 % (4.0-6.0)
[2023-04-14 19:28] LABS: Thyroid Stimulating Hormone 0.96 uIU/mL (0.465-4.68)
[2023-04-14 19:48] LABS: Direct LDL Cholesterol 78.25 mg/dL (100-129)
[2023-04-14 19:50] LABS: Intact Parathyroid Hormone 17.2 pg/mL (7.5-53.5)
== END ==
PROVIDERS: PCP Emergency Medicine; Visit Provider Emergency Medicine
DX: E03.9 Hypothyroidism, unspecified (principal); E11.9 Type 2 diabetes mellitus without complications; E83.51 Hypocalcemia; E66.9 Obesity, unspecified; Z68.32 Body mass index [BMI] 32.0-32.9, adult; Z79.84 Long term (current) use of oral hypoglycemic drugs; Z85.850 Personal history of malignant neoplasm of thyroid
CPT/HCPCS: 80053; 80061; 82306; 83036; 83970; 84436; 84443

== ENCOUNTER → 2023-04-27 14:50 | Outpatient (CLI) | payer MEDICAID, SELFPAY ==
[2023-04-27 18:07] LABS: Adenovirus,PCR Not Detected (NotDetected); Bordetella Pertussis Not Detected (NotDetected); Chlamydophila Pneumoniae, PCR Not Detected (NotDetected); Coronavirus 19, PCR Not Detected (NotDetected); Coronavirus 229E Not Detected (NotDetected); Coronavirus NL63 Not Detected (NotDetected); Coronavirus OC43 Not Detected (NotDetected); Coronovirus HKU1,PCR Not Detected (NotDetected); Human Metapneumovirus Not Detected (NotDetected); Influenza A, PCR Not Detected (NotDetected); Influenza AH1, 2009 Not Detected (NotDetected); Influenza AH1, PCR Not Detected (NotDetected); Influenza AH3,PCR Not Detected (NotDetected); Influenza B, PCR Not Detected (NotDetected); Mycoplasma Pneumoniae, PCR Not Detected (NotDetected); Parainfluenza 1, PCR Not Detected (NotDetected); Parainfluenza 2, PCR Not Detected (NotDetected); Parainfluenza 3, PCR Not Detected (NotDetected); Parainfluenza 4, PCR Not Detected (NotDetected); Respiratory Syncytial Virus Not Detected (NotDetected); Rhinovirus/Enterovirus Not Detected (NotDetected)
== END ==
PROVIDERS: PCP Emergency Medicine; Visit Provider Emergency Medicine
DX: R06.02 Shortness of breath (principal); R19.7 Diarrhea, unspecified; R11.10 Vomiting, unspecified; R51.9 Headache, unspecified
CPT/HCPCS: 87581; 87632; 87798